=== PATIENT | male | born 1930 | race American Indian/Alaskan Native ===

== ENCOUNTER 2017-10-24 13:53 | Inpatient (IN) | payer MEDICARE ==
[2017-10-24] MEDS ORDERED: NACL 0.9% 1000 ML 1,000 ML ONE ×2 (14:07→16:36)
[2017-10-24] MEDS ORDERED: NACL 0.9% 1000 ML IV ONE (14:30)
[2017-10-24] MEDS ORDERED: TYLENOL PO PRN (14:30)
--- NOTE | 2017-10-24 14:34 | Emergency Department Report ---
ED General Adult HPI - General Chief complaint: Altered Mental Status Stated complaint: AMS Time Seen by Provider: 10/24/17 14:13 Source: patient, EMS (ems notes not available at time of chart dictation), RN notes reviewed Mode of arrival: Stretcher Limitations: Other (patient is demented and is a poor historian) - History of Present Illness Initial comments: This is an 86-year-old male. The patient is previously unknown to this provider. Has a past medical history of renal insufficiency, high cholesterol, dementia, hypertension, possible GERD. He presents to the hospital with EMS from local halfway for fever and possible altered mental status. The patient has no recollection of this at all. The patient has no complaints. The patient specifically denies headache, neck pain, chest pain, abdominal pain , shortness of breath. As per verbal report from the nurse, patient is typically alert and oriented x3. In the ER, the patient was febrile, had a heart rate greater than 90, therefore ruled in for systemic inflammatory response syndrome criteria. -: unknown Consistency: constant Improves with: none Worsens with: none Associated Symptoms: confusion, fever/chills - Related Data Home Medications Medication Instructions Recorded Confirmed Last Taken Atorvastatin Calcium [Lipitor] 20 mg PO DAILY 02/19/14 02/24/14 02/24/14 09:00 Clopidogrel Bisulfate [Plavix] 75 mg PO DAILY 02/19/14 02/24/14 02/24/14 09:00 Donepezil [Aricept] 10 mg PO DAILY 02/19/14 02/24/14 02/24/14 Escitalopram Oxalate [Lexapro] 5 mg PO DAILY 02/19/14 02/24/14 02/24/14 09:00 Glimepiride [Amaryl] 4 mg PO DAILY 02/19/14 02/24/14 02/24/14 09:00 Omeprazole [PriLOSEC] 40 mg PO DAILY 02/19/14 02/24/14 02/24/14 07:00 Valsartan [Diovan] 160 mg PO DAILY 02/19/14 02/24/14 02/24/14 09:00 Meloxicam [Mobic] 7.5 mg PO QDAY 02/24/14 02/24/14 02/24/14 09:00 Previous Rx's Medication Instructions Recorded Last Taken Type Hydrochlorothiazide 12.5 mg PO QAM #30 capsule 02/24/14 Unknown Rx amLODIPine [Norvasc] 5 mg PO DAILY #30 tab 02/24/14 Unknown Rx Allergies Allergy/AdvReac Type Severity Reaction Status Date / Time No Known Allergies Allergy Verified 02/19/14 18:51 ED Review of Systems ROS: Stated complaint: AMS Other details as noted in HPI Comment: Unobtainable due to pts medical conditions Constitutional: fever Eyes: denies: vision change ENT: denies: epistaxis Respiratory: denies: cough Cardiovascular: denies: chest pain Gastrointestinal: denies: abdominal pain Genitourinary: denies: dysuria Neurological: confusion ED Past Medical Hx - Past Medical History Hx Hypertension: Yes Hx Diabetes: Yes - Surgical History Hx Open Heart Surgery: Yes - Social History Smoking Status: Never Smoker Substance Use Type: None - Medications Home Medications: Home Medications Medication Instructions Recorded Confirmed Last Taken Type Atorvastatin Calcium [Lipitor] 20 mg PO DAILY 02/19/14 02/24/14 02/24/14 09:00 History Clopidogrel Bisulfate [Plavix] 75 mg PO DAILY 02/19/14 02/24/14 02/24/14 09:00 History Donepezil [Aricept] 10 mg PO DAILY 02/19/14 02/24/14 02/24/14 History Escitalopram Oxalate [Lexapro] 5 mg PO DAILY 02/19/14 02/24/14 02/24/14 09:00 History Glimepiride [Amaryl] 4 mg PO DAILY 02/19/14 02/24/14 02/24/14 09:00 History Omeprazole [PriLOSEC] 40 mg PO DAILY 02/19/14 02/24/14 02/24/14 07:00 History Valsartan [Diovan] 160 mg PO DAILY 02/19/14 02/24/14 02/24/14 09:00 History Hydrochlorothiazide 12.5 mg PO QAM #30 capsule 02/24/14 Unknown Rx Meloxicam [Mobic] 7.5 mg PO QDAY 02/24/14 02/24/14 02/24/14 09:00 History amLODIPine [Norvasc] 5 mg PO DAILY #30 tab 02/24/14 Unknown Rx ED Physical Exam - General Limitations: Other (patient is demented. Patient is a poor historian.) General appearance: alert, in no apparent distress, other (patient is alert to name and location.) - Head Head exam: Present: atraumatic, normocephalic - Eye Eye exam: Present: normal appearance, EOMI, other (visual acuity intact to finger counting, color perception, reading at a close distance) - ENT ENT exam: Present: mucous membranes dry - Neck Neck exam: Present: normal inspection, full ROM. Absent: tenderness, meningismus - Respiratory Respiratory exam: Present: normal lung sounds bilaterally. Absent: respiratory distress - Cardiovascular Cardiovascular Exam: Present: normal rhythm, tachycardia, normal heart sounds. Absent: systolic murmur, diastolic murmur, rubs, gallop - GI/Abdominal GI/Abdominal exam: Present: soft, normal bowel sounds. Absent: distended, tenderness, guarding, rebound, rigid, pulsatile mass - Rectal Rectal exam: Present: deferred - Extremities Exam Extremities exam: Present: normal inspection, pedal edema, other (there is no redness, pus or streaking. There is no palpable cord The compartments are soft. ). Absent: calf tenderness - Back Exam Back exam: Present: normal inspection, full ROM. Absent: tenderness, CVA tenderness (R), paraspinal tenderness, vertebral tenderness - Neurological Exam Neurological exam: Present: alert, CN II-XII intact, other (Extraocular movements intact. Tongue midline. No facial droop. Facial sensation intact to light touch in the V1, V2, V3 distribution bilaterally. 5 and 5 strength in 4 extremities.. Sensation is intact to light touch in 4 extremities.). Absent : motor sensory deficit - Psychiatric Psychiatric exam: Present: normal affect, normal mood - Skin Skin exam: Present: warm, dry, intact, normal color. Absent: rash ED Course Vital Signs 10/24/17 13:56 Temperature 101.9 F H Pulse Rate 96 H Respiratory 22 Rate Blood Pressure 131/66 O2 Sat by Pulse 95 Oximetry - Reevaluation(s) Reevaluation #1: 10/24/17 15:09 Differential diagnosis, including but not limited to: Pneumonia, bacteremia, urinary tract infection, intra-abdominal infection delirium Assessment and plan: 78-year-old male with acute febrile illness. He has no neck pain or neck stiffness and he is not encephalopathic. He follows commands and has a nonfocal neurologic examination. His examination and history are not consistent with meningitis. Patient will be treated according to the sepsis pathway. He will be loaded empirically with ceftriaxone. Urinalysis, urine cultures, blood cultures, lactic acid pending. Patient will require admission given that he meet sepsis criteria. , Reevaluation #2: 10/24/17 15:27 CAT scan of the brain shows no bleed. CAT scan of the abdomen pelvis with no acute significant. The Hospital physician, Dr. Falcon accept the patient in the service. ED Medical Decision Making - Lab Data Result diagrams: 10/24/17 14:05 10/24/17 14:05 Vital Signs 10/24/17 13:56 Temperature 101.9 F H Pulse Rate 96 H Respiratory 22 Rate Blood Pressure 131/66 O2 Sat by Pulse 95 Oximetry Lab Results 10/24/17 10/24/17 10/24/17 Range/Units 14:05 14:05 14:05 WBC 16.2 H (4.5-11.0) K/mm3 RBC 4.47 (3.65-5.03) M/mm3 Hgb 13.1 (11.8-15.2) gm/dl Hct 38.9 (35.5-45.6) % MCV 87 (84-94) fl MCH 29 (28-32) pg MCHC 34 (32-34) % RDW 14.1 (13.2-15.2) % Plt Count 155 (140-440) K/mm3 Lymph % (Auto) 4.0 L (13.4-35.0) % Delta % (Auto) 8.3 H (0.0-7.3) % Eos % (Auto) 0.0 (0.0-4.3) % Baso % (Auto) 0.4 (0.0-1.8) % Lymph # 0.6 L (1.2-5.4) K/mm3 Delta # 1.3 H (0.0-0.8) K/mm3 Eos # 0.0 (0.0-0.4) K/mm3 Baso # 0.1 (0.0-0.1) K/mm3 Seg Neutrophils % 87.3 H (40.0-70.0) % Seg Neutrophils # 14.2 H (1.8-7.7) K/mm3 PT 13.6 (12.2-14.9) Sec. INR 0.99 (0.87-1.13) Sodium 136 L (137-145) mmol/L Potassium 4.0 (3.6-5.0) mmol/L Chloride 99.6 (98-107) mmol/L Carbon Dioxide 23 (22-30) mmol/L Anion Gap 17 mmol/L BUN 17 (9-20) mg/dL Creatinine 1.7 H (0.8-1.5) mg/dL Estimated GFR 46 ml/min BUN/Creatinine Ratio 10 % Glucose 181 H (75-100) mg/dL Calcium 8.6 (8.4-10.2) mg/dL Total Bilirubin 0.50 (0.1-1.2) mg/dL AST 13 (5-40) units/L ALT 8 (7-56) units/L Alkaline Phosphatase 95 (35-129) units/L Total Protein 7.2 (6.3-8.2) g/dL Albumin 3.6 L (3.9-5) g/dL Albumin/Globulin Ratio 1.0 % Urine Color (Yellow) Urine Turbidity (Clear) Urine pH (5.0-7.0) Ur Specific [place] (1.003-1.030) Urine Protein (Negative) mg/dL Urine Glucose (UA) (Negative) mg/dL Urine Ketones (Negative) mg/dL Urine Blood (Negative) Urine Nitrite (Negative) Urine Bilirubin (Negative) Urine Urobilinogen (<2.0) mg/dL Ur Leukocyte Esterase (Negative) Urine WBC (Auto) (0.0-6.0) /HPF Urine RBC (Auto) (0.0-6.0) /HPF U Epithel Cells (Auto) (0-13.0) /HPF Urine Bacteria (Auto) (Negative) /HPF Urine WBC Clumps /HPF /01/04 Range/Units 14:40 WBC (4.5-11.0) K/mm3 RBC (3.65-5.03) M/mm3 Hgb (11.8-15.2) gm/dl Hct (35.5-45.6) % MCV (84-94) fl MCH (28-32) pg MCHC (32-34) % RDW (13.2-15.2) % Plt Count (140-440) K/mm3 Lymph % (Auto) (13.4-35.0) % Delta % (Auto) (0.0-7.3) % Eos % (Auto) (0.0-4.3) % Baso % (Auto) (0.0-1.8) % Lymph # (1.2-5.4) K/mm3 Delta # (0.0-0.8) K/mm3 Eos # (0.0-0.4) K/mm3 Baso # (0.0-0.1) K/mm3 Seg Neutrophils % (40.0-70.0) % Seg Neutrophils # (1.8-7.7) K/mm3 PT (12.2-14.9) Sec. INR (0.87-1.13) Sodium (137-145) mmol/L Potassium (3.6-5.0) mmol/L Chloride (98-107) mmol/L Carbon Dioxide (22-30) mmol/L Anion Gap mmol/L BUN (9-20) mg/dL Creatinine (0.8-1.5) mg/dL Estimated GFR ml/min BUN/Creatinine Ratio % Glucose (75-100) mg/dL Calcium (8.4-10.2) mg/dL Total Bilirubin (0.1-1.2) mg/dL AST (5-40) units/L ALT (7-56) units/L Alkaline Phosphatase (35-129) units/L Total Protein (6.3-8.2) g/dL Albumin (3.9-5) g/dL Albumin/Globulin Ratio % Urine Color Yellow (Yellow) Urine Turbidity Clear (Clear) Urine pH 5.0 (5.0-7.0) Ur Specific [place] 1.010 (1.003-1.030) Urine Protein <15 mg/dl (Negative) mg/dL Urine Glucose (UA) Neg (Negative) mg/dL Urine Ketones Neg (Negative) mg/dL Urine Blood Mod (Negative) Urine Nitrite Neg (Negative) Urine Bilirubin Neg (Negative) Urine Urobilinogen < 2.0 (<2.0) mg/dL Ur Leukocyte Esterase Lg (Negative) Urine WBC (Auto) > 182.0 H (0.0-6.0) /HPF Urine RBC (Auto) 8.0 (0.0-6.0) /HPF U Epithel Cells (Auto) < 1.0 (0-13.0) /HPF Urine Bacteria (Auto) 1+ (Negative) /HPF Urine WBC Clumps 2+ /HPF - EKG Data -: EKG Interpreted by Me EKG shows normal: sinus rhythm - EKG Data When compared to previous EKG there are: previous EKG unavailable 10/24/17 15:06 Normal sinus, 93 bpm, left axis deviation motion artifact, left ventricular hypertrophy, not having chest - Radiology Data Radiology results: report reviewed, image reviewed Print Report Referring Physician: GONZALO FLETCHER Patient Name: MEGAN MURPHY Date of : 1930 Sex: Male Report Date: 2017-10-24 Report Status: Finalized Findings [facility] [address] [place] [address] XRay Report Signed Patient: MEGAN MURPHY MR#: [id number] : 1930 Acct:[id number] Age/Sex: 86 / M ADM Date: 10/24/17 Loc: ED Attending Dr: Ordering Physician: GONZALO FLETCHER MD Date of Service: 10/24/17 Procedure(s): XR chest 1V ap Accession Number(s): [id number] cc: GONZALO FLETCHER MD Fluoro Time In Minutes: AP CHEST: HISTORY: Sepsis No comparison. Heart size and pulmonary vascularity are borderline. The aorta is ectatic but well-defined. No evidence for pneumonia, CHF or pneumothorax. IMPRESSION: Borderline heart size and pulmonary vascularity. Ectatic aorta. Transcribed By: TTR Dictated By: SHIREEN MIN JR, MD Electronically Authenticated By: SHIREEN MIN JR, MD Signed Date/Time: 10/24/17 1442 Critical care attestation.: If time is entered above; I have spent that time in minutes in the direct care of this critically ill patient, excluding procedure time. ED Disposition Clinical Impression: Sepsis secondary to UTI Disposition: OP ADMIT IP TO THIS HOSP Is pt being admited?: Yes Condition: Good
[2017-10-24 14:37] LABS: Basophils # (Auto) 0.1 K/mm3 (0.0-0.1); Basophils % (Auto) 0.4 % (0.0-1.8); Hematocrit 38.9 % (35.5-45.6); Hemoglobin 13.1 gm/dl (11.8-15.2); Lymphocytes # (Auto) 0.6 K/mm3 (1.2-5.4); Mean Corpuscular HGB Conc 34 % (32-34); Mean Corpuscular Hemoglobin 29 pg (28-32); Mean Corpuscular Volume 87 fl (84-94); Monocytes # (Auto) 1.3 K/mm3 (0.0-0.8); Monocytes % (Auto) 8.3 % (0.0-7.3); Platelet Count 155 K/mm3 (140-440); Red Blood Count 4.47 M/mm3 (3.65-5.03); Red Cell Distribution Width 14.1 % (13.2-15.2)
[2017-10-24 14:52] LABS: INR 0.99 (0.87-1.13)
--- NOTE | 2017-10-24 14:52 | XRay Report ---
AP CHEST: HISTORY: Sepsis No comparison. Heart size and pulmonary vascularity are borderline. The aorta is ectatic but well-defined. No evidence for pneumonia, CHF or pneumothorax. IMPRESSION: Borderline heart size and pulmonary vascularity. Ectatic aorta.
[2017-10-24 14:55] LABS: Bacteria,Urine 1+ /HPF (Negative); Bilirubin,Urine NEG (Negative); Blood,Urine MOD (Negative); Color,Urine Yellow (Yellow); Protein,Urine <15 mg/dL mg/dL (Negative); Urobilinogen,Urine < 2.0 mg/dL (<2.0); WBC,Urine > 182.0 /HPF (0.0-6.0)
[2017-10-24] MEDS ORDERED: ROCEPHIN/NS 1 GM/50 ML 1 GM/50 ML BAG IV SCH (15:00)
[2017-10-24 15:03] LABS: Albumin 3.6 g/dL (3.9-5); Calcium 8.6 mg/dL (8.4-10.2)
--- NOTE | 2017-10-24 15:12 | Cat Scan Report ---
CT HEAD WITHOUT CONTRAST: HISTORY: Altered mental status, sepsis. TECHNIQUE: Sequential CT images without contrast. FINDINGS: Non-contrast CT of the head is submitted demonstrating central and cortical atrophy. There are low density changes in the periventricular white matter. There is no intracranial hemorrhage or mass effect. There is no shift of the midline. Basilar cisterns are patent. The included portions of the paranasal sinuses and mastoid air cells are clear. On the most inferior image, there is suggestion of a periapical tooth abscess involving a right maxillary incisor. IMPRESSION: Senescent changes as noted. No acute intracranial process. Right maxillary incisor periapical tooth abscess.
--- NOTE | 2017-10-24 15:17 | Cat Scan Report ---
CT ABDOMEN PELVIS WITHOUT CONTRAST: HISTORY: Altered mental status, sepsis. COMPARISON: none. TECHNIQUE: Helical CT in 1.25mm intervals without IV contrast. Sagittal and coronal reconstructions. FINDINGS: Lung bases: Adequately aerated. Normal heart size. Liver: Normal. Biliary system: Numerous tiny stones are identified in the dependent portions of the gallbladder. No abnormal dilatation or inflammatory changes. The common bile duct is normal caliber. Pancreas: Normal. Spleen: Normal. Kidneys/ureters/bladder: There is moderate multifocal cortical scarring in both kidneys. No evidence for nephrolithiasis or hydronephrosis. 2 cm cyst near the superior pole the right kidney is noted. The ureters are normal course and caliber. There is moderate to severe bladder diverticulosis. The prostate gland is mildly enlarged measuring 5.6 cm in diameter. Adrenal glands: Normal. Aorta: Moderate diffuse calcifications. There is mild fusiform dilatation of the distal aorta measuring up to 3.8 cm. Intestines: Unremarkable given no oral contrast was administered. Appendix: Normal. Pelvic viscera: Normal. Ascites: None. Adenopathy: None. Musculoskeletal: Osteopenia and diffuse degenerative changes throughout the lumbar spine. No fracture or suspicious bony lesion is identified. IMPRESSION: Cholelithiasis. Chronic multifocal scarring in both kidneys. Diverticulosis of the bladder. Enlarged prostate gland. 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 Osteopenia and degenerative changes.
[2017-10-24] MEDS: cefTRIAXone 1 GM in NACL 0.9% 20 ML IV SCH ×2 (15:24→16:35)
[2017-10-24] MEDS ORDERED: SODIUM CHLORIDE FLUSH SYRINGE 10 ML IV PRN (15:36)
[2017-10-24] MEDS ORDERED: ZOFRAN IV PRN (15:36)
[2017-10-24] MEDS ORDERED: PROVENTIL IH PRN (15:36)
[2017-10-24] MEDS ORDERED: VANCOMYCIN VIAL IV ONE (15:36)
--- NOTE | 2017-10-24 15:36 | History and Physical Report ---
History of Present Illness Chief complaint: confusion and fever History of present illness: 86 YO Male [facility] Resident with HTN, DM, HLD, Dementia,GERD, CAD S/P CABG presents to ED for evaluation. Pt is confused and unable to provide history. Pt history provided by son who is at bedside during exam and interview. As per son , the patient has experienced confusion over the past 2 days, as well as subjective fever. EMS notified, and upon arrival the patient was found to be confused, with fever to 101.3. Pt transported to [facility] for further care and evaluation. Pt seen and evaluated in ED and found to have Sepsis secondary to UTI, as well as encephalopathy, and acute renal failure. Pt admitted to medical floor. No reports of CP, Palpitations, NVD, Syncope, Trauma, skin rash, productive cough, BRBPR, or recent ill contacts. Past History Past Medical History: CAD, diabetes, GERD, hypertension, hyperlipidemia Past Surgical History: CABG Social history: Family history: diabetes, hypertension Medications and Allergies Allergies Allergy/AdvReac Type Severity Reaction Status Date / Time No Known Allergies Allergy Verified 02/19/14 18:51 Home Medications Medication Instructions Recorded Confirmed Last Taken Type Atorvastatin Calcium [Lipitor] 20 mg PO DAILY 02/19/14 02/24/14 02/24/14 09:00 History Clopidogrel Bisulfate [Plavix] 75 mg PO DAILY 02/19/14 02/24/14 02/24/14 09:00 History Donepezil [Aricept] 10 mg PO DAILY 02/19/14 02/24/14 02/24/14 History Escitalopram Oxalate [Lexapro] 5 mg PO DAILY 02/19/14 02/24/14 02/24/14 09:00 History Glimepiride [Amaryl] 4 mg PO DAILY 02/19/14 02/24/14 02/24/14 09:00 History Omeprazole [PriLOSEC] 40 mg PO DAILY 02/19/14 02/24/14 02/24/14 07:00 History Valsartan [Diovan] 160 mg PO DAILY 02/19/14 02/24/14 02/24/14 09:00 History Hydrochlorothiazide 12.5 mg PO QAM #30 capsule 02/24/14 Unknown Rx Meloxicam [Mobic] 7.5 mg PO QDAY 02/24/14 02/24/1402/24/14 09:00 History amLODIPine [Norvasc] 5 mg PO DAILY #30 tab 02/24/14 Unknown Rx Active Meds: Active Medications Acetaminophen (Tylenol) 650 mg PO Q6H PRN PRN Reason: Pain, Mild (1-3) Ceftriaxone Sodium 1 gm/ (Sodium Chloride) 20 mls @ 2 mls/min IV Q24HR JEREL Last Admin: 10/24/17 15:24 Dose: 2 mls/min Review of Systems Constitutional: fever, no weight loss, no weight gain, no chills Ears, nose, mouth and throat: no ear pain, no ear discharge, no tinnitis, no decreased hearing, no nose pain, no nasal congestion Cardiovascular: no chest pain, no orthopnea, no palpitations, no rapid/ irregular heart beat, no edema Respiratory: no cough, no cough with sputum, no excessive sputum, no hemoptysis Gastrointestinal: no abdominal pain, no nausea, no vomiting, no diarrhea, no constipation Genitourinary Male: no dysuria, no hematuria, no flank pain, no discharge, no urinary frequency, no urinary hesitancy Rectal: no pain, no incontinence, no bleeding Musculoskeletal: no neck stiffness, no neck pain, no shooting arm pain, no arm numbness/tingling, no low back pain, no shooting leg pain Integumentary: no rash, no pruritis, no redness, no sores, no wounds, no jaundice, no boils Neurological: no head injury, no transient paralysis, no paralysis, no weakness , no parathesias, no numbness, no tingling, no seizures, no syncope Psychiatric: no anxiety, no memory loss, no change in sleep habits, no sleep disturbances, no insomnia, no hypersomnia, no change in appetite, no change in libido, no suicidal ideation Endocrine: no cold intolerance, no heat intolerance, no polyphagia, no excessive thirst, no polydipsia, no polyuria, no nocturia, no excessive sweating Hematologic/Lymphatic: no easy bruising, no easy bleeding, no lymphadenopathy, no lymphedema Allergic/Immunologic: no urticaria, no allergic rhinitis, no wheezing, no persistent infections, no anaphylaxis Exam - Constitutional Vitals: Temp Pulse Resp BP Pulse Ox 101.9 F H 96 H 22 131/66 95 10/24/17 13:56 10/24/17 13:56 10/24/17 13:56 10/24/17 13:56 10/24/17 13:56 General appearance: Present: mild distress - EENT Eyes: Present: PERRL ENT: hearing intact, clear oral mucosa - Neck Neck: Present: supple, normal ROM - Respiratory Respiratory effort: normal Respiratory: bilateral: CTA - Cardiovascular Heart Sounds: Present: S1 & S2. Absent: rub, click - Extremities Extremities: pulses symmetrical, No edema Peripheral Pulses: abnormal (capillary refill greater than 3.6 seconds) - Abdominal General gastrointestinal: Present: soft, non-tender, non-distended, normal bowel sounds Male genitourinary: Present: normal - Integumentary Integumentary: Present: clear, warm, dry - Musculoskeletal Musculoskeletal: generalized weakness - Psychiatric Psychiatric: no intact judgment & insight, no memory intact - Neurologic Neurologic: CNII-XII intact, moves all extremities, no gait normal Results - Labs CBC & Chem 7: 10/24/17 14:05 10/24/17 14:05 Labs: Abnormal lab results 10/24/17 10/24/17 10/24/17 Range/Units 14:05 14:05 14:40 WBC 16.2 H (4.5-11.0) K/mm3 Lymph % (Auto) 4.0 L (13.4-35.0) % Mathews % (Auto) 8.3 H (0.0-7.3) % Lymph # 0.6 L (1.2-5.4) K/mm3 Mathews # 1.3 H (0.0-0.8) K/mm3 Seg Neutrophils % 87.3 H (40.0-70.0) % Seg Neutrophils # 14.2 H (1.8-7.7) K/mm3 Sodium 136 L (137-145) mmol/L Creatinine 1.7 H (0.8-1.5) mg/dL Glucose 181 H (75-100) mg/dL Lactic Acid (0.7-2.0) mmol/L Albumin 3.6 L (3.9-5) g/dL Urine WBC (Auto) > 182.0 H (0.0-6.0) /HPF 10/24/17 Range/Units Unknown WBC (4.5-11.0) K/mm3 Lymph % (Auto) (13.4-35.0) % Mathews % (Auto) (0.0-7.3) % Lymph # (1.2-5.4) K/mm3 Mathews # (0.0-0.8) K/mm3 Seg Neutrophils % (40.0-70.0) % Seg Neutrophils # (1.8-7.7) K/mm3 Sodium (137-145) mmol/L Creatinine (0.8-1.5) mg/dL Glucose (75-100) mg/dL Lactic Acid 2.60 H* (0.7-2.0) mmol/L Albumin (3.9-5) g/dL Urine WBC (Auto) (0.0-6.0) /HPF Assessment and Plan - Patient Problems (1) Sepsis Status: Acute Qualifiers: Sepsis type: sepsis due to unspecified organism Qualified Code(s): A41.9 - Sepsis, unspecified organism Plan to address problem: IV antibiotic therapy, monitor uop q shift, serial lactic acid, blood cultures, Chest X ray, CBC, CMP, IVF resuscitation. (2) UTI (urinary tract infection) Status: Acute Qualifiers: Encounter type: initial encounter Plan to address problem: IV antibiotic therapy, urinalysis, (3) ARF (acute renal failure) Status: Acute Qualifiers: Acute renal failure type: with acute tubular necrosis Qualified Code(s): N17.0 - Acute kidney failure with tubular necrosis Plan to address problem: IVF resuscitation therapy, urine electrolytes, (4) Acidosis Status: Acute Plan to address problem: IVF resuscitation therapy, monitor uop q shift, repeat bmp, (5) DVT prophylaxis Status: Acute Plan to address problem: SCD to BLE while in bed
[2017-10-24] MEDS ORDERED: VANCOMYCIN PHARMACY TO DOSE IV SCH (16:00)
[2017-10-24] MEDS ORDERED: VANCOMYCIN 1,500 MG in NACL 0.9% 500 ML 500 ML IV ONE (16:15)
[2017-10-24] MEDS ORDERED: ZOSYN/NS 4.5GM/100ML 4.5 GM/100 ML VIAL IV SCH (22:00)
[2017-10-24] MEDS: ZOSYN/NS 2.25 GM/50ML 2.25 GM/50 ML BAG IV SCH ×2 (23:25→23:26)
[2017-10-24] MEDS: TYLENOL PO PRN (23:27)
[2017-10-24] MEDS: SODIUM CHLORIDE FLUSH SYRINGE 10 ML IV SCH (23:46)
[2017-10-25] MEDS: ZOSYN/NS 2.25 GM/50ML 2.25 GM/50 ML BAG IV SCH ×4 (05:59→22:10)
[2017-10-25] MEDS: TYLENOL PO PRN (10:02)
[2017-10-25] MEDS: SODIUM CHLORIDE FLUSH SYRINGE 10 ML IV SCH ×2 (10:20→22:10)
[2017-10-25] MEDS ORDERED: VANCOMYCIN 1,250 MG in NACL 0.9% 250ML 250 ML IV SCH (16:30)
--- NOTE | 2017-10-25 17:21 | Progress Note ---
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 Pt is confused and unable to provide history. Pt history provided by son who is at bedside during exam and interview. As per son , the patient has experienced confusion over the past 2 days, as well as subjective fever. EMS notified, and upon arrival the patient was found to be confused, with fever to 101.3. Pt transported to [facility] for further care and evaluation. Pt seen and evaluated in ED and found to have Sepsis secondary to UTI, as well as encephalopathy, and acute renal failure. Pt admitted to medical floor. No reports of CP, Palpitations, NVD, Syncope, Trauma, skin rash, productive cough, BRBPR, or recent ill contacts. (1) Sepsis Status: Acute Qualifiers: Sepsis type: sepsis due to unspecified organism Qualified Code(s): A41.9 - Sepsis, unspecified organism Plan to address problem: IV antibiotic therapy, monitor uop q shift, serial lactic acid, blood cultures, Chest X ray, CBC, CMP, IVF resuscitation. (2) UTI (urinary tract infection) Status: Acute Qualifiers: Encounter type: initial encounter Plan to address problem: IV antibiotic therapy, urinalysis, (3) ARF (acute renal failure) Status: Acute Qualifiers: Acute renal failure type: with acute tubular necrosis Qualified Code(s): N17.0 - Acute kidney failure with tubular necrosis Plan to address problem: IVF resuscitation therapy, urine electrolytes, (4) Acidosis Status: Acute Plan to address problem: IVF resuscitation therapy, monitor uop q shift, repeat bmp, (5) DVT prophylaxis Status: Acute Plan to address problem: SCD to BLE while in bed Hospitalist Physical - Constitutional Vitals: Temp Pulse Resp BP Pulse Ox 98.7 F 62 20 122/62 97 10/25/17 13:34 10/25/17 13:34 10/25/17 13:34 10/25/17 13:34 10/25/17 13:34 General appearance: Present: mild distress Results - Labs CBC & Chem 7: 10/24/17 14:05 10/24/17 14:05 Labs: Laboratory Last Values WBC 16.2 K/mm3 (4.5-11.0) H 10/24/17 14:05 RBC 4.47 M/mm3 (3.65-5.03) 10/24/17 14:05 Hgb 13.1 gm/dl (11.8-15.2) 10/24/17 14:05 Hct 38.9 % (35.5-45.6) 10/24/17 14:05 MCV 87 fl (84-94) 10/24/17 14:05 MCH 29 pg (28-32) 10/24/17 14:05 MCHC 34 % (32-34) 10/24/17 14:05 RDW 14.1 % (13.2-15.2) 10/24/17 14:05 Plt Count 155 K/mm3 (140-440) 10/24/17 14:05 Lymph % (Auto) 4.0 % (13.4-35.0) L 10/24/17 14:05 [place] % (Auto) 8.3 % (0.0-7.3) H 10/24/17 14:05 Eos % (Auto) 0.0 % (0.0-4.3) 10/24/17 14:05 Baso % (Auto) 0.4 % (0.0-1.8) 10/24/17 14:05 Lymph # 0.6 K/mm3 (1.2-5.4) L 10/24/17 14:05 [place] # 1.3 K/mm3 (0.0-0.8) H 10/24/17 14:05 Eos # 0.0 K/mm3 (0.0-0.4) 10/24/17 14:05 Baso # 0.1 K/mm3 (0.0-0.1) 10/24/17 14:05 Seg Neutrophils % 87.3 % (40.0-70.0) H 10/24/17 14:05 Seg Neutrophils # 14.2 K/mm3 (1.8-7.7) H 10/24/17 14:05 PT 13.6 Sec. (12.2-14.9) 10/24/17 14:05 INR 0.99 (0.87-1.13) 10/24/17 14:05 VBG pH 7.392 (7.320-7.420) 10/24/17 15:00 Sodium 136 mmol/L (137-145) L 10/24/17 14:05 Potassium 4.0 mmol/L (3.6-5.0) 10/24/17 14:05 Chloride 99.6 mmol/L (98-107) 10/24/17 14:05 Carbon Dioxide 23 mmol/L (22-30) 10/24/17 14:05 Anion Gap 17 mmol/L 10/24/17 14:05 BUN 17 mg/dL (9-20) 10/24/17 14:05 Creatinine 1.7 mg/dL (0.8-1.5) H 10/24/17 14:05 Estimated GFR 46 ml/min 10/24/17 14:05 BUN/Creatinine Ratio 10 % 10/24/17 14:05 Glucose 181 mg/dL (75-100) H 10/24/17 14:05 POC Glucose 186 (70-105) H 10/25/17 16:41 Lactic Acid 1.90 mmol/L (0.7-2.0) 10/25/17 04:34 Calcium 8.6 mg/dL (8.4-10.2) 10/24/17 14:05 Total Bilirubin 0.50 mg/dL (0.1-1.2) 10/24/17 14:05 AST 13 units/L (5-40) 10/24/17 14:05 ALT 8 units/L (7-56) 10/24/17 14:05 Alkaline Phosphatase 95 units/L (35-129) 10/24/17 14:05 Total Protein 7.2 g/dL (6.3-8.2) 10/24/17 14:05 Albumin 3.6 g/dL (3.9-5) L 10/24/17 14:05 Albumin/Globulin Ratio 1.0 % 10/24/17 14:05 Urine Color Yellow (Yellow) 10/24/17 14:40 Urine Turbidity Clear (Clear) 10/24/17 14:40 Urine pH 5.0 (5.0-7.0) 10/24/17 14:40 Ur Specific [place] 1.010 (1.003-1.030) 10/24/17 14:40 Urine Protein <15 mg/dl mg/dL (Negative) 10/24/17 14:40 Urine Glucose (UA) Neg mg/dL (Negative) 10/24/17 14:40 Urine Ketones Neg mg/dL (Negative) 10/24/17 14:40 Urine Blood Mod (Negative) 10/24/17 14:40 Urine Nitrite Neg (Negative) 10/24/17 14:40 Urine Bilirubin Neg (Negative) 10/24/17 14:40 Urine Urobilinogen < 2.0 mg/dL (<2.0) 10/24/17 14:40 Ur Leukocyte Esterase Lg (Negative) 10/24/17 14:40 Urine WBC (Auto) > 182.0 /HPF (0.0-6.0) H 10/24/17 14:40 Urine RBC (Auto) 8.0 /HPF (0.0-6.0) 10/24/17 14:40 U Epithel Cells (Auto) < 1.0 /HPF (0-13.0) 10/24/17 14:40 Urine Bacteria (Auto) 1+ /HPF (Negative) 10/24/17 14:40 Urine WBC Clumps 2+ /HPF 10/24/17 14:40
[2017-10-26] MEDS: ZOSYN/NS 2.25 GM/50ML 2.25 GM/50 ML BAG IV SCH ×3 (05:02→17:21)
[2017-10-26 09:03] VITALS: BP 146/70
[2017-10-26] MEDS: TYLENOL PO PRN (09:34)
[2017-10-26] MEDS: SODIUM CHLORIDE FLUSH SYRINGE 10 ML IV SCH (09:35)
--- NOTE | 2017-10-26 15:03 | Discharge Summary ---
Providers - Providers Date of Admission: 10/24/17 15:36 Attending physician: ABDIRAHMAN PRIEST MD Primary care physician: MAULIK GONZALEZ Hospitalization Condition: Good Hospital course: 86 YO Male [facility] Resident with HTN, DM, HLD, Dementia,GERD, CAD S/P CABG presents to ED for evaluation. Pt is confused and unable to provide history. Pt history provided by son who is at bedside during exam and interview. As per son , the patient has experienced confusion over the past 2 days, as well as subjective fever. EMS notified, and upon arrival the patient was found to be confused, with fever to 101.3. Pt transported to [facility] for further care and evaluation. Pt seen and evaluated in ED and found to have Sepsis secondary to UTI, as well as encephalopathy, and acute renal failure. Pt admitted to medical floor. No reports of CP, Palpitations, NVD, Syncope, Trauma, skin rash, productive cough, BRBPR, or recent ill contacts. (1) Sepsis Status: Acute Qualifiers: Sepsis type: sepsis due to unspecified organism Qualified Code(s): A41.9 - Sepsis, unspecified organism Plan to address problem: IV antibiotic therapy, monitor uop q shift, serial lactic acid, blood cultures, Chest X ray, CBC, CMP, IVF resuscitation. (2) UTI (urinary tract infection) Status: Acute Qualifiers: Encounter type: initial encounter Plan to address problem: IV antibiotic therapy, urinalysis, (3) ARF (acute renal failure) Status: Acute Qualifiers: Acute renal failure type: with acute tubular necrosis Qualified Code(s): N17.0 - Acute kidney failure with tubular necrosis Plan to address problem: IVF resuscitation therapy, urine electrolytes, (4) Acidosis Status: Acute Plan to address problem: IVF resuscitation therapy, monitor uop q shift, repeat bmp, (5) DVT prophylaxis Status: Acute Plan to address problem: SCD to BLE while in bed Disposition: DC/TX-70 ANOTHER TYPE [facility]TH[facility] Time spent for discharge: 33 minutes Core Measure Documentation - Palliative Care Palliative Care/ Comfort Measures: Not Applicable - Core Measures Any of the following diagnoses?: none Exam - Constitutional Vitals: Temp Pulse Resp BP Pulse Ox 99.5 F 62 18 146/70 97 10/26/17 08:00 10/26/17 10:00 10/26/17 10:00 10/26/17 08:00 10/26/17 10:00 General appearance: Present: no acute distress, well-nourished - EENT Eyes: Present: PERRL ENT: hearing intact, clear oral mucosa - Neck Neck: Present: supple, normal ROM - Respiratory Respiratory effort: normal Respiratory: bilateral: CTA - Cardiovascular Heart Sounds: Present: S1 & S2. Absent: rub, click - Extremities Extremities: pulses symmetrical, No edema Peripheral Pulses: within normal limits - Abdominal General gastrointestinal: Present: soft, non-tender, non-distended, normal bowel sounds Male genitourinary: Present: normal - Integumentary Integumentary: Present: clear, warm, dry - Musculoskeletal Musculoskeletal: gait normal, strength equal bilaterally - Psychiatric Psychiatric: appropriate mood/affect, no intact judgment & insight, no memory intact, cooperative - Neurologic Neurologic: CNII-XII intact, moves all extremities Plan Follow up with: MAULIK GONZALEZ MD [Primary Care Provider] - 7 Days
== END 2017-10-26 19:50 | disposition other institution (70) | DRG 871 ==
LOC: ED 13:53 → 2B-ACE 15:36
PROVIDERS: ADMIT Internal Medicine; ATTEND Internal Medicine
DX: A41.9 Sepsis, unspecified organism (principal); N17.0 Acute kidney failure with tubular necrosis; G93.40 Encephalopathy, unspecified; N39.0 Urinary tract infection, site not specified; E87.2 Acidosis; I10 Essential (primary) hypertension; E11.9 Type 2 diabetes mellitus without complications; E78.5 Hyperlipidemia, unspecified; F03.90 Unspecified dementia, unspecified severity, without behavioral disturbance, psychotic disturbance, mood disturbance, and anxiety; K21.9 Gastro-esophageal reflux disease without esophagitis; I25.10 Atherosclerotic heart disease of native coronary artery without angina pectoris; Z95.1 Presence of aortocoronary bypass graft; Z82.49 Family history of ischemic heart disease and other diseases of the circulatory system; Z83.3 Family history of diabetes mellitus
CPT/HCPCS: 36415; 70450; 71045; 74176; 80053; 81001; 82140; 82805; 82962; 85025; 85610; 87040; 87086; 93005; 93010; 96365; J0696; J2405; J2543; J3370; J7030; J7040; J7050

== ENCOUNTER 2018-01-04 12:48 | Inpatient (IN) | payer MEDICARE ==
[2018-01-04] MEDS ORDERED: NACL 0.9% 500 ML 500 ML IV ONE (13:20)
[2018-01-04 13:43] LABS: Basophils # (Auto) 0.1 K/mm3 (0.0-0.1); Basophils % (Auto) 0.8 % (0.0-1.8); Eosinophils % (Auto) 0.2 % (0.0-4.3); Hemoglobin 11.3 gm/dl (11.8-15.2); Lymphocytes # (Auto) 1.2 K/mm3 (1.2-5.4); Lymphocytes % (Auto) 10.5 % (13.4-35.0); Mean Corpuscular HGB Conc 32 % (32-34); Mean Corpuscular Hemoglobin 28 pg (28-32); Mean Corpuscular Volume 88 fl (84-94); Monocytes # (Auto) 1.1 K/mm3 (0.0-0.8); Monocytes % (Auto) 9.8 % (0.0-7.3); Platelet Count 149 K/mm3 (140-440); Red Blood Count 3.99 M/mm3 (3.65-5.03); Red Cell Distribution Width 15.4 % (13.2-15.2)
[2018-01-04 13:58] LABS: INR 1.15 (0.87-1.13)
[2018-01-04 13:59] LABS: Albumin 2.6 g/dL (3.9-5); Calcium 8.8 mg/dL (8.4-10.2)
--- NOTE | 2018-01-04 14:27 | XRay Report ---
AP CHEST: HISTORY: Possible sepsis Heart size and pulmonary vascularity remain within normal limits. The aorta is ectatic which is also unchanged. The lungs are clear. The bony structures are intact. IMPRESSION: No acute process. Tortuous aorta. No change since 10/24/17.
[2018-01-04 14:41] LABS: Bilirubin,Urine NEG (Negative); Blood,Urine MOD (Negative); Color,Urine Yellow (Yellow); WBC,Urine > 182.0 /HPF (0.0-6.0)
--- NOTE | 2018-01-04 16:13 | Emergency Department Report ---
ED Medical Clearance HPI - General Chief complaint: Medical Clearance Stated complaint: DEHYDRATION Time Seen by Provider: 01/04/18 15:38 Source: EMS Mode of arrival: Stretcher - History of Present Illness Initial comments: 87yo male was brought in from Assisted living to get his vitals checked and to make sure he was doing ok. per pts son, kaleb he is under no acute distress, acting himself, no change in behavior. Reason for Medical Clearance: other trauma, other Place: other (assisted living) Alledged Intoxication: No Compliant with Home Medications: Yes Traumatic Symptoms: denies traumatic injury, trunk injury Associated Symptoms: denies: chest pain, shortness of breath, palpitations, diaphoresis, denies other symptoms, confusion, cough, fever/chills, headaches, anorexia, malaise, nausea/vomiting, rash, seizure, syncope, weakness Treatments Prior to Arrival: none Home medications: Home Medications Medication Instructions Recorded Confirmed Last Taken Atorvastatin Calcium [Lipitor] 20 mg PO DAILY 02/19/14 10/24/17 02/24/14 09:00 Clopidogrel Bisulfate [Plavix] 75 mg PO DAILY 02/19/14 10/24/17 02/24/14 09:00 Donepezil [Aricept] 10 mg PO HS 02/19/14 10/24/17 02/24/14 Escitalopram Oxalate [Lexapro] 5 mg PO DAILY 02/19/14 10/24/17 02/24/14 09:00 Omeprazole [PriLOSEC] 40 mg PO DAILY 02/19/14 10/24/17 02/24/14 07:00 Hydrochlorothiazide 12.5 mg PO QDAY 10/24/17 10/24/17 Unknown risperiDONE [Risperdal] 0.5 mg PO DAILY 10/24/17 10/24/17 Unknown Previous Rx's Medication Instructions Recorded Last Taken Type Cephalexin [Keflex] 500 mg PO BID #10 capsule 10/26/17 Unknown Rx Allergies/Adverse reactions: Allergies Allergy/AdvReac Type Severity Reaction Status Date / Time No Known Allergies Allergy Verified 01/04/18 13:12 ED Review of Systems ROS: Stated complaint: DEHYDRATION Other details as noted in HPI Constitutional: denies: chills, fever Eyes: denies: eye pain, eye discharge, vision change ENT: denies: ear pain, throat pain Respiratory: denies: cough, shortness of breath, wheezing Cardiovascular: denies: chest pain, palpitations Endocrine: no symptoms reported Gastrointestinal: denies: abdominal pain, nausea, diarrhea Genitourinary: denies: urgency, dysuria Musculoskeletal: denies: back pain, joint swelling, arthralgia Skin: denies: rash, lesions Neurological: denies: headache, weakness, paresthesias Psychiatric: denies: anxiety, depression Hematological/Lymphatic: denies: easy bleeding, easy bruising ED Past Medical Hx - Past Medical History Hx Hypertension: Yes Hx Diabetes: Yes Additional medical history: DEMENTIA RENAL FAILURE - Surgical History Hx Open Heart Surgery: Yes - Social History Smoking Status: Unknown if ever smoked - Medications Home Medications: Home Medications Medication Instructions Recorded Confirmed Last Taken Type Atorvastatin Calcium [Lipitor] 20 mg PO DAILY 02/19/14 10/24/17 02/24/14 09:00 History Clopidogrel Bisulfate [Plavix] 75 mg PO DAILY 02/19/14 10/24/17 02/24/14 09:00 History Donepezil [Aricept] 10 mg PO HS 02/19/14 10/24/17 02/24/14 History Escitalopram Oxalate [Lexapro] 5 mg PO DAILY 02/19/14 10/24/17 02/24/14 09:00 History Omeprazole [PriLOSEC] 40 mg PO DAILY 02/19/14 10/24/17 02/24/14 07:00 History Hydrochlorothiazide 12.5 mg PO QDAY 10/24/17 10/24/17 Unknown History risperiDONE [Risperdal] 0.5 mg PO DAILY 10/24/17 10/24/17 Unknown History Cephalexin [Keflex] 500 mg PO BID #10 capsule 10/26/17 Unknown Rx ED Physical Exam - General Limitations: Other General appearance: alert, in no apparent distress - Head Head exam: Present: atraumatic, normocephalic - Eye Eye exam: Present: normal appearance - ENT ENT exam: Present: mucous membranes moist - Neck Neck exam: Present: normal inspection - Respiratory Respiratory exam: Present: normal lung sounds bilaterally. Absent: respiratory distress - Cardiovascular Cardiovascular Exam: Present: regular rate, normal rhythm. Absent: systolic murmur, diastolic murmur, rubs, gallop - GI/Abdominal GI/Abdominal exam: Present: soft, normal bowel sounds - Rectal Rectal exam: Present: deferred - Extremities Exam Extremities exam: Present: normal inspection - Back Exam Back exam: Present: normal inspection - Neurological Exam Neurological exam: Present: alert, oriented X3 - Psychiatric Psychiatric exam: Present: normal affect, normal mood - Skin Skin exam: Present: warm, dry, intact, normal color. Absent: rash ED Course Vital Signs 01/04/18 01/04/18 01/04/18 13:12 13:33 13:35 Temperature 99.1 F Pulse Rate 107 H 104 H Respiratory 16 24 24 Rate Blood Pressure 118/87 Blood Pressure 108/60 [Left] O2 Sat by Pulse 96 97 97 Oximetry 01/04/18 01/04/18 01/04/18 14:10 14:16 15:00 Temperature 100.8 F H Pulse Rate 104 H 74 Respiratory 21 17 Rate Blood Pressure 112/59 88/46 Blood Pressure [Left] O2 Sat by Pulse 100 100 Oximetry 01/04/18 01/04/18 15:30 16:00 Temperature Pulse Rate 75 78 Respiratory 15 14 Rate Blood Pressure 117/52 114/62 Blood Pressure [Left] O2 Sat by Pulse 98 76 L Oximetry 87yo male brought in from assisted living for being dehydrated, pt has a UTI, and pt is given antibiotics in the ER and he will be admitted for observation. ED Medical Decision Making - Lab Data Result diagrams: 01/04/18 13:25 01/04/18 13:25 ED Disposition Clinical Impression: Dehydration, Urinary tract infection Disposition: -09 OP ADMIT IP TO THIS HOSP Is pt being admited?: Yes Does the pt Need Aspirin: No Condition: Stable Referrals: PRIMARY CARE, [Primary Care Provider] - 3-5 Days
[2018-01-04] MEDS ORDERED: ROCEPHIN/NS 2 GM/100 ML 2 GM/100 ML BAG IV ONE (16:49)
[2018-01-04] MEDS ORDERED: ROCEPHIN/NS 1 GM/50 ML 1 GM/50 ML BAG IV SCH (17:30)
[2018-01-04] MEDS ORDERED: D50W (25GM) Syringe IV PRN (22:22)
[2018-01-04] MEDS ORDERED: SODIUM CHLORIDE FLUSH SYRINGE 10 ML IV PRN (22:22)
[2018-01-04] MEDS ORDERED: ZOFRAN IV PRN (22:22)
--- NOTE | 2018-01-05 00:30 | History and Physical Report ---
History of Present Illness Date of examination: 01/05/18 Date of admission: 01/04/18 18:34 Chief complaint: Poor historian Patient apparently was transferred from assisted living facility to check his vital signs as he was felt to be hot History of present illness: 87-year-old male with history of hypertension diabetes hyperlipidemia dementia and depression who lives in assisted living facility was transferred to the ED to check out as he was noted to have some fever. In the ED he was noted to have a temperature of 100.8 and upon further workup was noted to have UTI and is being admitted for further management. Patient is awake and alert, poor historian, offers no specific complaints and he denies any pain. 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) Social history: no significant social history Family history: other (unable to obtain) Medications and Allergies Allergies Allergy/AdvReac Type Severity Reaction Status Date / Time No Known Allergies Allergy Verified 01/04/18 13:12 Home Medications Medication Instructions Recorded Confirmed Last Taken Type Atorvastatin Calcium [Lipitor] 20 mg PO DAILY 02/19/14 01/04/18 02/24/14 09:00 History Clopidogrel Bisulfate [Plavix] 75 mg PO DAILY 02/19/14 01/04/18 02/24/14 09:00 History Donepezil [Aricept] 10 mg PO HS 02/19/14 01/04/18 02/24/14 History Escitalopram Oxalate [Lexapro] 5 mg PO DAILY 02/19/14 01/04/18 02/24/14 09:00 History Omeprazole [PriLOSEC] 40 mg PO DAILY 02/19/14 01/04/18 02/24/14 07:00 History Hydrochlorothiazide 12.5 mg PO QDAY 10/24/17 01/04/18 Unknown History risperiDONE [Risperdal] 0.5 mg PO DAILY 10/24/17 01/04/18 Unknown History Glimepiride [Amaryl] 2 mg PO DAILY 01/04/18 01/04/18 Unknown History Valsartan [Diovan] 160 mg PO DAILY 01/04/18 01/04/18 Unknown History amLODIPine [Norvasc] 10 mg PO DAILY 01/04/18 01/04/18 Unknown History Active Meds: Active Medications Acetaminophen (Tylenol) 650 mg PO Q4H PRN PRN Reason: Pain MILD(1-3)/Fever >100.5/TSANG Dextrose (D50w (25gm) Syringe) 50 ml IV PRN PRN PRN Reason: Hypoglycemia Heparin Sodium (Porcine) (Heparin) 5,000 unit SUB-Q Q8HR JEREL Dextrose/Sodium Chloride (D5ns) 1,000 mls @ 75 mls/hr IV DIRECT JEREL Ceftriaxone Sodium (Rocephin/Ns 1 Gm/50 Ml) 1 gm in 50 mls @ 100 mls/hr IV Q24HR JEREL; Protocol Insulin Human Lispro (Humalog) 0 unit SUB-Q ACHS JEREL; Protocol Ondansetron HCl (Zofran) 4 mg IV Q8H PRN PRN Reason: Nausea And Vomiting Sodium Chloride (Sodium Chloride Flush Syringe 10 Ml) 10 ml IV BID JEREL Sodium Chloride (Sodium Chloride Flush Syringe 10 Ml) 10 ml IV PRN PRN PRN Reason: LINE FLUSH Review of Systems Constitutional: no weight loss, no weight gain, no fever, no chills, no weakness Cardiovascular: high blood pressure, no chest pain, no palpitations, no shortness of breath Respiratory: no cough, no shortness of breath Gastrointestinal: no abdominal pain, no nausea, no vomiting, no diarrhea, no constipation, no melena Genitourinary Male: no dysuria, no urinary frequency, no incontinence Rectal: no pain Musculoskeletal: no neck pain, no low back pain Integumentary: no rash Neurological: no seizures, no syncope, no vertigo, no headaches Psychiatric: no anxiety, no depression Endocrine: no excessive thirst, no polydipsia, no polyuria Exam - Constitutional Vitals: Temp Pulse Resp BP Pulse Ox 99.7 F H 104 H 18 129/69 96 01/04/18 23:00 01/04/18 23:00 01/04/18 23:00 01/04/18 23:00 01/04/18 23:00 General appearance: Present: no acute distress, well-nourished - EENT Eyes: Present: PERRL, EOM intact ENT: hearing intact - Neck Neck: Present: supple, normal ROM. Absent: masses or JVD, carotid bruits - Respiratory Respiratory effort: normal Respiratory: bilateral: CTA, diminished - Cardiovascular Rhythm: regular Heart Sounds: Present: S1 & S2 - Extremities Extremity abnormal: edema (1+ bilateral leg edema) - Abdominal General gastrointestinal: Present: soft, non-tender. Absent: hepatomegaly, splenomegaly Male genitourinary: Present: deferred - Rectal Rectal Exam: deferred - Integumentary Integumentary: Present: clear - Musculoskeletal Musculoskeletal: strength equal bilaterally - Psychiatric Psychiatric: appropriate mood/affect - Neurologic Neurologic: no focal deficits, moves all extremities Results - Labs CBC & Chem 7: 01/04/18 13:25 01/04/18 13:25 Labs: Abnormal lab results 01/04/18 01/04/18 01/04/18 Range/Units 13:25 13:25 13:25 WBC 11.5 H (4.5-11.0) K/mm3 Hgb 11.3 L (11.8-15.2) gm/dl Hct 35.0 L (35.5-45.6) % RDW 15.4 H (13.2-15.2) % Lymph % (Auto) 10.5 L (13.4-35.0) % [place] % (Auto) 9.8 H (0.0-7.3) % [place] # 1.1 H (0.0-0.8) K/mm3 Seg Neutrophils % 78.7 H (40.0-70.0) % Seg Neutrophils # 9.0 H (1.8-7.7) K/mm3 PT 15.3 H (12.2-14.9) Sec. INR 1.15 H (0.87-1.13) Potassium 3.4 L (3.6-5.0) mmol/L BUN 26 H (9-20) mg/dL Creatinine 1.8 H (0.8-1.5) mg/dL Glucose 202 H (75-100) mg/dL Albumin 2.6 L (3.9-5) g/dL Urine WBC (Auto) (0.0-6.0) /HPF 01/04/18 Range/Units 14:18 WBC (4.5-11.0) K/mm3 Hgb (11.8-15.2) gm/dl Hct (35.5-45.6) % RDW (13.2-15.2) % Lymph % (Auto) (13.4-35.0) % [place] % (Auto) (0.0-7.3) % [place] # (0.0-0.8) K/mm3 Seg Neutrophils % (40.0-70.0) % Seg Neutrophils # (1.8-7.7) K/mm3 PT (12.2-14.9) Sec. INR (0.87-1.13) Potassium (3.6-5.0) mmol/L BUN (9-20) mg/dL Creatinine (0.8-1.5) mg/dL Glucose (75-100) mg/dL Albumin (3.9-5) g/dL Urine WBC (Auto) > 182.0 H (0.0-6.0) /HPF Assessment and Plan - Patient Problems (1) Type 2 diabetes mellitus Current Visit: Yes Status: Chronic Qualifiers: Diabetes mellitus penitentiary insulin use: without terminal makeup operator use Diabetes mellitus complication status: with kidney complications Chronic kidney disease stage: unspecified stage Plan to address problem: Start the patient on Accu-Cheks with insulin sliding scale coverage (2) Hypertension Current Visit: Yes Status: Chronic Plan to address problem: Continue home medications (3) Hyperlipidemia Current Visit: Yes Status: Chronic Qualifiers: Hyperlipidemia type: mixed hyperlipidemia Qualified Code(s): E78.2 - Mixed hyperlipidemia Plan to address problem: Continue statin (4) Dementia Current Visit: Yes Status: Chronic Qualifiers: Dementia type: Alzheimer's disease Alzheimer's disease onset: late-onset Dementia behavioral disturbance: without behavioral disturbance Qualified Code (s): G30.1 - Alzheimer's disease with late onset; F02.80 - Dementia in other diseases classified elsewhere without behavioral disturbance Plan to address problem: Continue home medication (5) Depression Current Visit: Yes Status: Chronic Qualifiers: Depression Type: unspecified Qualified Code(s): F32.9 - Major depressive disorder, single episode, unspecified Plan to address problem: Continue home medication (6) Hypokalemia Current Visit: Yes Status: Acute Plan to address problem: Mild Potassium supplements Monitor electrolytes (7) UTI (urinary tract infection) Current Visit: Yes Status: Acute Qualifiers: Urinary tract infection type: acute cystitis Hematuria presence: with hematuria Qualified Code(s): N30.01 - Acute cystitis with hematuria Plan to address problem: Urine and blood cultures obtained Start the patient on intravenous antibiotics with empiric ceftriaxone Await blood and urine culture results (8) ARF (acute renal failure) Current Visit: No Status: Acute Qualifiers: Acute renal failure type: with acute tubular necrosis Qualified Code(s): N17.0 - Acute kidney failure with tubular necrosis Plan to address problem: Patient's baseline renal function is not known Rule out acute on chronic kidney disease Gentle IV hydration and monitor renal function Avoid nephrotoxins Will request nephrology consult
[2018-01-05] MEDS: D5NS 1,000 ML IV SCH ×2 (04:28→17:25)
[2018-01-05] MEDS: HEPARIN SUB-Q SCH ×3 (06:26→22:03)
[2018-01-05 06:37] LABS: Calcium 8.4 mg/dL (8.4-10.2)
--- NOTE | 2018-01-05 07:35 | Consultation ---
History of Present Illness - Reason for Consult Consult date: 01/05/18 chronic renal failure, hypokalemia - History of Present Illness The patient is an 87-year AAM with history significant for DM type 2, HTN, HLD, Dementia, Depression and CKD who lives in assisted living facility was transferred to the ED for evaluation of fever. In the ED he was noted to have a temperature of 100.8 and upon further workup was noted to have UTI. Patient is a very poor historian. Initial BP was as low as 88/48 and creatinine was 1.8. 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) Social history: no significant social history Family history: other (unable to obtain) Medications and Allergies Allergies Allergy/AdvReac Type Severity Reaction Status Date / Time No Known Allergies Allergy Verified 01/04/18 13:12 Home Medications Medication Instructions Recorded Confirmed Last Taken Type Atorvastatin Calcium [Lipitor] 20 mg PO DAILY 02/19/14 01/04/18 02/24/14 09:00 History Clopidogrel Bisulfate [Plavix] 75 mg PO DAILY 02/19/14 01/04/18 02/24/14 09:00 History Donepezil [Aricept] 10 mg PO HS 02/19/14 01/04/18 02/24/14 History Escitalopram Oxalate [Lexapro] 5 mg PO DAILY 02/19/14 01/04/18 02/24/14 09:00 History Omeprazole [PriLOSEC] 40 mg PO DAILY 02/19/14 01/04/18 02/24/14 07:00 History Hydrochlorothiazide 12.5 mg PO QDAY 10/24/17 01/04/18 Unknown History risperiDONE [Risperdal] 0.5 mg PO DAILY 10/24/17 01/04/18 Unknown History Glimepiride [Amaryl] 2 mg PO DAILY 01/04/18 01/04/18 Unknown History Valsartan [Diovan] 160 mg PO DAILY 01/04/18 01/04/18 Unknown History amLODIPine [Norvasc] 10 mg PO DAILY 01/04/18 01/04/18 Unknown History Active Meds: Active Medications Acetaminophen (Tylenol) 650 mg PO Q4H PRN PRN Reason: Pain MILD(1-3)/Fever >100.5/TSANG Dextrose (D50w (25gm) Syringe) 50 ml IV PRN PRN PRN Reason: Hypoglycemia Heparin Sodium (Porcine) (Heparin) 5,000 unit SUB-Q Q8HR JEREL Last Admin: 01/05/18 06:26 Dose: 5,000 unit Dextrose/Sodium Chloride (D5ns) 1,000 mls @ 75 mls/hr IV DIRECT JEREL Last Admin: 01/05/18 04:28 Dose: 75 mls/hr Ceftriaxone Sodium (Rocephin/Ns 1 Gm/50 Ml) 1 gm in 50 mls @ 100 mls/hr IV Q24HR JEREL; Protocol Insulin Human Lispro (Humalog) 0 unit SUB-Q ACHS JEREL; Protocol Ondansetron HCl (Zofran) 4 mg IV Q8H PRN PRN Reason: Nausea And Vomiting Sodium Chloride (Sodium Chloride Flush Syringe 10 Ml) 10 ml IV BID JEREL Sodium Chloride (Sodium Chloride Flush Syringe 10 Ml) 10 ml IV PRN PRN PRN Reason: LINE FLUSH Review of Systems ROS unobtainable: due to mental status Exam - Vital Signs Vital signs: Vital Signs Temp Pulse Resp BP Pulse Ox 99.1 F 107 H 16 118/87 96 01/04/18 13:12 01/04/18 13:12 01/04/18 13:12 01/04/18 13:12 01/04/18 13:12 - General Appearance General appearance: well-developed, appears stated age, other (no distress) EENT: ATNC, mucous membranes dry Neck: Present: neck supple Respiratory: Clear to Ascultation Heart: regular, S1S2, no murmurs Gastrointestinal: Present: normoactive bowel sounds. Absent: tenderness Integumentary: chronic venous stasis Neurologic: no focal deficit, confused, disoriented Musculoskeletal: Present: other (amputation of right 4 fingers, trace bilateral LE edema noted) Psychiatric: cooperative Results - Lab Results 01/04/18 13:25 01/05/18 05:35 Most recent lab results Calcium 8.4 mg/dL (8.4-10.2) 01/05/18 05:35 Assessment and Plan 1. Acute kidney injury: Vasomotor / hemodynamic YESENIA. Continue IV fluids. Monitor renal function. 2. Hypokalemia: Replete K. 3. UTI / Sepsis. 4. Dementia.
[2018-01-05] MEDS: HumaLOG SUB-Q SCH ×4 (08:15→23:34)
[2018-01-05] MEDS: NORVASC PO SCH (09:00)
--- NOTE | 2018-01-05 09:23 | Progress Note ---
Assessment and Plan - Sepsis from UTI Follow up with blood and urine Cx Continue with iv antibiotic - Type 2 diabetes mellitus Consistent carbohydrate diet. Obtain A1c. Start the patient on Accu-Cheks with insulin sliding scale coverage - Hypertension Continue home medications - Hyperlipidemia Continue statin - Dementia Continue home medication - Depression Continue home medication - Hypokalemia Mild Potassium supplements Monitor electrolytes - UTI (urinary tract infection) Urine and blood cultures obtained continue intravenous antibiotics with empiric ceftriaxone Await blood and urine culture results - ARF (acute renal failure) Patient's baseline renal function is not known Rule out acute on chronic kidney disease Gentle IV hydration and monitor renal function Avoid nephrotoxins Nephrology consult following Subjective Date of service: 01/05/18 Principal diagnosis: Sepsis from UTI Interval history: Patient seen and examined. No distress. Discussed with nursing staff. No overnight events reported Reviewed laboratory and radiological data Objective - Exam Narrative Exam: Constitutional: Emaciated Well-nourished well-developed. In no distress Head: Normocephalic atraumatic Eyes: Pupils are equal round and reactive to light Nose: No enlarged turbinates, no septal deviation. Mouth: Moist mucous membranes. Neck: Supple no thyromegaly. No bruit. No JVD Heart: Regular rate and rhythm, S1-S2 abnormal. No rubs murmurs or gallop Lungs: Clear to auscultation bilaterally no rales or rhonchi Abdomen: Soft, nontender. Bowel sound are present. Extremities: No edema no cyanosis and no clubbing. Neuro: Demented Skin: No rashes no hyperemic spots Psychiatry: Demented - Constitutional Vitals: Vital Signs - 12hr 01/04/18 01/04/18 01/04/18 21:30 22:00 22:56 Temperature Pulse Rate 92 H 77 Pulse Rate [ Left Radial] Respiratory 20 21 Rate Blood Pressure 119/60 119/60 132/66 Blood Pressure [Left] O2 Sat by Pulse 88 Oximetry 01/04/18 01/04/18 01/04/18 23:00 23:05 23:19 Temperature 99.7 F H Pulse Rate 104 H Pulse Rate [ Left Radial] Respiratory 18 Rate Blood Pressure 132/66 132/66 Blood Pressure 129/69 [Left] O2 Sat by Pulse 96 Oximetry 01/04/18 01/05/18 01/05/18 23:20 01:00 01:19 Temperature Pulse Rate Pulse Rate [ 90 Left Radial] Respiratory Rate Blood Pressure 132/66 132/66 Blood Pressure [Left] O2 Sat by Pulse 97 Oximetry 01/05/18 01/05/18 01/05/18 01:38 01:50 02:01 Temperature 99.7 F H Pulse Rate 78 Pulse Rate [ Left Radial] Respiratory 18 Rate Blood Pressure 132/66 132/66 139/66 Blood Pressure [Left] O2 Sat by Pulse 95 Oximetry 01/05/18 01/05/18 04:25 08:36 Temperature Pulse Rate 84 Pulse Rate [ Left Radial] Respiratory Rate Blood Pressure Blood Pressure [Left] O2 Sat by Pulse 97 Oximetry - Labs CBC & Chem 7: 01/04/18 13:25 01/05/18 05:35 Labs: Abnormal lab results 01/04/18 01/04/18 01/04/18 Range/Units 13:25 13:25 13:25 WBC 11.5 H (4.5-11.0) K/mm3 Hgb 11.3 L (11.8-15.2) gm/dl Hct 35.0 L (35.5-45.6) % RDW 15.4 H (13.2-15.2) % Lymph % (Auto) 10.5 L (13.4-35.0) % [place] % (Auto) 9.8 H (0.0-7.3) % [place] # 1.1 H (0.0-0.8) K/mm3 Seg Neutrophils % 78.7 H (40.0-70.0) % Seg Neutrophils # 9.0 H (1.8-7.7) K/mm3 PT 15.3 H (12.2-14.9) Sec. INR 1.15 H (0.87-1.13) Potassium 3.4 L (3.6-5.0) mmol/L Carbon Dioxide (22-30) mmol/L BUN 26 H (9-20) mg/dL Creatinine 1.8 H (0.8-1.5) mg/dL Glucose 202 H (75-100) mg/dL POC Glucose (70-105) Albumin 2.6 L (3.9-5) g/dL Urine WBC (Auto) (0.0-6.0) /HPF 01/04/18 01/05/18 01/05/18 Range/Units 14:18 01:32 05:35 WBC (4.5-11.0) K/mm3 Hgb (11.8-15.2) gm/dl Hct (35.5-45.6) % RDW (13.2-15.2) % Lymph % (Auto) (13.4-35.0) % [place] % (Auto) (0.0-7.3) % [place] # (0.0-0.8) K/mm3 Seg Neutrophils % (40.0-70.0) % Seg Neutrophils # (1.8-7.7) K/mm3 PT (12.2-14.9) Sec. INR (0.87-1.13) Potassium 3.5 L (3.6-5.0) mmol/L Carbon Dioxide 21 L (22-30) mmol/L BUN 21 H (9-20) mg/dL Creatinine 1.6 H (0.8-1.5) mg/dL Glucose 135 H (75-100) mg/dL POC Glucose 124 H (70-105) Albumin (3.9-5) g/dL Urine WBC (Auto) > 182.0 H (0.0-6.0) /HPF 01/05/18 Range/Units 08:08 WBC (4.5-11.0) K/mm3 Hgb (11.8-15.2) gm/dl Hct (35.5-45.6) % RDW (13.2-15.2) % Lymph % (Auto) (13.4-35.0) % [place] % (Auto) (0.0-7.3) % [place] # (0.0-0.8) K/mm3 Seg Neutrophils % (40.0-70.0) % Seg Neutrophils # (1.8-7.7) K/mm3 PT (12.2-14.9) Sec. INR (0.87-1.13) Potassium (3.6-5.0) mmol/L Carbon Dioxide (22-30) mmol/L BUN (9-20) mg/dL Creatinine (0.8-1.5) mg/dL Glucose (75-100) mg/dL POC Glucose 176 H (70-105) Albumin (3.9-5) g/dL Urine WBC (Auto) (0.0-6.0) /HPF
[2018-01-05] MEDS ORDERED: NON-FORMULARY (Omeprazole [Prilosec] 40 MG) PO SCH (10:00)
[2018-01-05] MEDS ORDERED: ESCITALOPRAM OXALATE 5 MG PO SCH (10:00)
[2018-01-05] MEDS ORDERED: NON-FORMULARY (Risperidone [Risperdal] 0.5 MG) PO SCH (10:00)
[2018-01-05] MEDS: ROCEPHIN/NS 1 GM/50 ML 1 GM/50 ML BAG IV SCH (10:30)
[2018-01-05] MEDS: SODIUM CHLORIDE FLUSH SYRINGE 10 ML IV SCH (10:31)
[2018-01-05] MEDS: TYLENOL PO PRN (11:46)
[2018-01-05] MEDS: PLAVIX PO SCH (11:47)
[2018-01-05] MEDS: PROTONIX PO SCH (14:57)
[2018-01-05] MEDS: LEXAPRO PO SCH (14:57)
[2018-01-05] MEDS: RisperDAL PO SCH (14:58)
[2018-01-05] MEDS ORDERED: K-DUR PO ONE (19:25)
[2018-01-05] MEDS: ARICEPT PO SCH (22:00)
--- NOTE | 2018-01-05 23:42 | Ultrasound Report ---
FINAL REPORT PROCEDURE: US RENAL BILAT TECHNIQUE: Real-time sonography in multiple planes of the kidneys, ureters and urinary bladder was performed with image documentation. CPT 29946 HISTORY: Acute renal failure. COMPARISON: No prior studies are available for comparison. FINDINGS: RIGHT kidney: Parenchymal echotexture is normal without calculi or hydronephrosis. A simple cyst measuring 1.5 centimeters is noted in the upper pole.. Length: 10.3 x 3.9 x 4.3 cm. LEFT kidney: Normal echotexture. No focal renal mass, calculus, or hydronephrosis. Length: 10 x 4.4 x 4.6cm. Bladder: Empty. Incidental note is made of multiple small calculi in the gallbladder IMPRESSION: A simple cyst is noted in the upper pole right kidney. Otherwise unremarkable study. Evidence of cholelithiasis..
[2018-01-06] MEDS: SODIUM CHLORIDE FLUSH SYRINGE 10 ML IV SCH ×3 (03:37→22:31)
[2018-01-06 05:59] LABS: Basophils % (Auto) 0.6 % (0.0-1.8); Eosinophils # (Auto) 0.1 K/mm3 (0.0-0.4); Eosinophils % (Auto) 1.6 % (0.0-4.3); Hematocrit 33.7 % (35.5-45.6); Hemoglobin 11.1 gm/dl (11.8-15.2); Lymphocytes # (Auto) 1.1 K/mm3 (1.2-5.4); Lymphocytes % (Auto) 17.9 % (13.4-35.0); Mean Corpuscular HGB Conc 33 % (32-34); Mean Corpuscular Hemoglobin 29 pg (28-32); Mean Corpuscular Volume 87 fl (84-94); Monocytes # (Auto) 0.7 K/mm3 (0.0-0.8); Monocytes % (Auto) 11.3 % (0.0-7.3); Platelet Count 177 K/mm3 (140-440); Red Blood Count 3.88 M/mm3 (3.65-5.03); Red Cell Distribution Width 15.4 % (13.2-15.2)
[2018-01-06] MEDS: HEPARIN SUB-Q SCH ×3 (06:07→22:30)
[2018-01-06 06:24] LABS: Alanine Aminotransferase 10 units/L (7-56); Albumin 2.7 g/dL (3.9-5); BUN/Creatinine Ratio 12; Blood Urea Nitrogen 15 mg/dL (9-20); Calcium 8.4 mg/dL (8.4-10.2); Hemolysis Index 3
[2018-01-06] MEDS: D5NS 1,000 ML IV SCH ×2 (06:36→22:31)
[2018-01-06] MEDS: HumaLOG SUB-Q SCH ×3 (08:13→19:15)
[2018-01-06] MEDS ORDERED: MAGNESIUM SULFATE 2GM/50ML 2 GM/50 ML BAG IV ONE (09:18)
--- NOTE | 2018-01-06 09:18 | Progress Note ---
Assessment and Plan 1. Acute kidney injury: Vasomotor / hemodynamic YESENIA. Renal function is better. Continue IV fluids. Monitor renal function. 2. Hypokalemia: Replete K and Mg. 3. UTI / Sepsis. 4. Dementia. Subjective Date of service: 01/06/18 Principal diagnosis: Sepsis from UTI Interval history: Patient was seen and examined at the bedside. Objective - Vital Signs Vital signs: Vital Signs - 12hr 01/06/18 01/06/18 02:37 07:33 Temperature 98.5 F 99.6 F Pulse Rate 69 Respiratory 20 20 Rate Blood Pressure 138/66 121/62 O2 Sat by Pulse 99 Oximetry - General Appearance General appearance: well-developed, appears stated age, other (no distress) EENT: ATNC Neck: supple Respiratory: Present: Clear to Ascultation Cardiology: regular, S1S2, no murmurs Gastrointestinal: normoactive bowel sounds, no tenderness Integumentary: no rash, warm and dry Neurologic: no focal deficit, no asterixis, confused, disoriented Musculoskeletal: other (trace pedal edema) - Lab 01/06/18 05:34 01/06/18 05:34 Most recent lab results Calcium 8.4 mg/dL (8.4-10.2) 01/06/18 05:34 Magnesium 1.60 mg/dL (1.7-2.3) L 01/06/18 05:34
[2018-01-06] MEDS ORDERED: MAGNESIUM SULFATE 2 GM in NACL 0.9% 50 ML IV ONE (10:00)
--- NOTE | 2018-01-06 11:24 | Progress Note ---
Assessment and Plan Assessment and plan: --Sepsis secondary to UTI; MRSA UTI Vancomycin , contact isolation follow cultures IV fluids and supportive care --Hypertension; moderate control Continue current antihypertensives and when necessary medications --Type 2 diabetes mellitus; Accu-Chek sliding scale coverage ADA diet and insulin as needed --Dementia; supportive care --History of depression; continue antidepression medications Consider psych consult if needed --Hypokalemia; replace per protocol and monitor levels --Acute kidney injury; secondary to ATN Renal function trending down, gentle hydration -- severe malnutrition; nutritional consult, supportive care And supplements --DVT prophylaxis; heparin --Full CODE STATUS Discharge planning per case management in medically stable Plan of care reviewed with the patient and his nurse History Interval history: Patient seen and examined medical records reviewed No new events reported by the nursing staff The patient is alert and awake No new complaints Vital signs reviewed Hospitalist Physical - Constitutional Vitals: Temp Pulse Resp BP Pulse Ox 99.6 F 69 20 121/62 99 01/06/18 07:33 01/06/18 07:33 01/06/18 07:33 01/06/18 07:33 01/06/18 07:33 General appearance: Present: no acute distress, well-nourished - EENT Eyes: Present: PERRL, EOM intact - Neck Neck: Present: supple, normal ROM - Respiratory Respiratory effort: normal Respiratory: bilateral: diminished, negative: rales, rhonchi, wheezing - Cardiovascular Rhythm: regular Heart Sounds: Present: S1 & S2 - Extremities Extremities: no ischemia, No edema - Abdominal General gastrointestinal: soft, non-tender, non-distended, normal bowel sounds - Integumentary Integumentary: Present: clear, warm - Psychiatric Psychiatric: appropriate mood/affect, cooperative - Neurologic Neurologic: CNII-XII intact, moves all extremities Results - Labs CBC & Chem 7: 01/06/18 05:34 01/06/18 05:34 Labs: Laboratory Last Values WBC 6.2 K/mm3 (4.5-11.0) 01/06/18 05:34 RBC 3.88 M/mm3 (3.65-5.03) 01/06/18 05:34 Hgb 11.1 gm/dl (11.8-15.2) L 01/06/18 05:34 Hct 33.7 % (35.5-45.6) L 01/06/18 05:34 MCV 87 fl (84-94) 01/06/18 05:34 MCH 29 pg (28-32) 01/06/18 05:34 MCHC 33 % (32-34) 01/06/18 05:34 RDW 15.4 % (13.2-15.2) H 01/06/18 05:34 Plt Count 177 K/mm3 (140-440) 01/06/18 05:34 Lymph % (Auto) 17.9 % (13.4-35.0) 01/06/18 05:34 [place] % (Auto) 11.3 % (0.0-7.3) H 01/06/18 05:34 Eos % (Auto) 1.6 % (0.0-4.3) 01/06/18 05:34 Baso % (Auto) 0.6 % (0.0-1.8) 01/06/18 05:34 Lymph # 1.1 K/mm3 (1.2-5.4) L 01/06/18 05:34 [place] # 0.7 K/mm3 (0.0-0.8) 01/06/18 05:34 Eos # 0.1 K/mm3 (0.0-0.4) 01/06/18 05:34 Baso # 0.0 K/mm3 (0.0-0.1) 01/06/18 05:34 Seg Neutrophils % 68.6 % (40.0-70.0) 01/06/18 05:34 Seg Neutrophils # 4.3 K/mm3 (1.8-7.7) 01/06/18 05:34 PT 15.3 Sec. (12.2-14.9) H 01/04/18 13:25 INR 1.15 (0.87-1.13) H 01/04/18 13:25 VBG pH 7.408 (7.320-7.420) 01/04/18 13:25 Sodium 144 mmol/L (137-145) 01/06/18 05:34 Potassium 3.1 mmol/L (3.6-5.0) L 01/06/18 05:34 Chloride 106.0 mmol/L (98-107) 01/06/18 05:34 Carbon Dioxide 24 mmol/L (22-30) 01/06/18 05:34 Anion Gap 17 mmol/L 01/06/18 05:34 BUN 15 mg/dL (9-20) 01/06/18 05:34 Creatinine 1.3 mg/dL (0.8-1.5) 01/06/18 05:34 Estimated GFR > 60 ml/min 01/06/18 05:34 BUN/Creatinine Ratio 12 % 01/06/18 05:34 Glucose 131 mg/dL (75-100) H 01/06/18 05:34 POC Glucose 132 (70-105) H 01/06/18 07:54 Lactic Acid 1.80 mmol/L (0.7-2.0) 01/04/18 16:34 Calcium 8.4 mg/dL (8.4-10.2) 01/06/18 05:34 Magnesium 1.60 mg/dL (1.7-2.3) L 01/06/18 05:34 Total Bilirubin 0.30 mg/dL (0.1-1.2) 01/06/18 05:34 AST 19 units/L (5-40) 01/06/18 05:34 ALT 10 units/L (7-56) 01/06/18 05:34 Alkaline Phosphatase 114 units/L (35-129) 01/06/18 05:34 Total Protein 6.1 g/dL (6.3-8.2) L 01/06/18 05:34 Albumin 2.7 g/dL (3.9-5) L 01/06/18 05:34 Albumin/Globulin Ratio 0.8 % 01/06/18 05:34 Urine Color Yellow (Yellow) 01/04/18 14:18 Urine Turbidity Clear (Clear) 01/04/18 14:18 Urine pH 6.0 (5.0-7.0) 01/04/18 14:18 Ur Specific [place] 1.014 (1.003-1.030) 01/04/18 14:18 Urine Protein 100 mg/dl mg/dL (Negative) 01/04/18 14:18 Urine Glucose (UA) Neg mg/dL (Negative) 01/04/18 14:18 Urine Ketones Neg mg/dL (Negative) 01/04/18 14:18 Urine Blood Mod (Negative) 01/04/18 14:18 Urine Nitrite Neg (Negative) 01/04/18 14:18 Urine Bilirubin Neg (Negative) 01/04/18 14:18 Urine Urobilinogen 2.0 mg/dL (<2.0) 01/04/18 14:18 Ur Leukocyte Esterase Lg (Negative) 01/04/18 14:18 Urine WBC (Auto) > 182.0 /HPF (0.0-6.0) H 01/04/18 14:18 Urine RBC (Auto) 112.0 /HPF (0.0-6.0) 01/04/18 14:18 Urine WBC Clumps 3+ /HPF 01/04/18 14:18
[2018-01-06] MEDS: PLAVIX PO SCH (11:33)
[2018-01-06] MEDS: LEXAPRO PO SCH (11:33)
[2018-01-06] MEDS: PROTONIX PO SCH (11:33)
[2018-01-06] MEDS: K-DUR PO SCH ×4 (11:34→22:29)
[2018-01-06] MEDS: RisperDAL PO SCH (11:35)
[2018-01-06] MEDS: ROCEPHIN/NS 1 GM/50 ML 1 GM/50 ML BAG IV SCH (11:36)
[2018-01-06] MEDS: NORVASC PO SCH (11:37)
[2018-01-06] MEDS ORDERED: VANCOMYCIN/NS 1 GM/250 ML 1 GM/250 ML BAG IV SCH ×2 (12:00)
[2018-01-06] MEDS ORDERED: VANCOMYCIN PHARMACY TO DOSE IV SCH (12:00)
[2018-01-06] MEDS ORDERED: VANCOMYCIN 1,500 MG in NACL 0.9% 500 ML 500 ML IV ONE (12:00)
[2018-01-06] MEDS: TYLENOL PO PRN (22:30)
[2018-01-06] MEDS: ARICEPT PO SCH (22:30)
[2018-01-07] MEDS: HumaLOG SUB-Q SCH ×5 (00:42→23:02)
[2018-01-07] MEDS: K-DUR PO SCH (00:43)
[2018-01-07] MEDS: HEPARIN SUB-Q SCH ×3 (06:05→22:37)
[2018-01-07 07:56] LABS: BUN/Creatinine Ratio 8; Blood Urea Nitrogen 9 mg/dL (9-20); Calcium 8.8 mg/dL (8.4-10.2); Hemolysis Index 10
[2018-01-07] MEDS ORDERED: MAGNESIUM SULFATE 2GM/50ML 2 GM/50 ML BAG IV ONE (09:46)
[2018-01-07] MEDS ORDERED: K-DUR PO NR (09:46)
--- NOTE | 2018-01-07 09:46 | Progress Note ---
Assessment and Plan 1. Acute kidney injury: Vasomotor / hemodynamic YESENIA. Renal function is better. Monitor renal function. 2. Hypokalemia: Replete K and Mg. 3. UTI / Sepsis. 4. Dementia. Subjective Date of service: 01/07/18 Principal diagnosis: Sepsis from UTI Interval history: Patient was seen and examined at the bedside. Objective - Vital Signs Vital signs: Vital Signs - 12hr 01/06/18 01/06/18 01/06/18 22:00 22:30 23:30 Temperature Pulse Rate Respiratory 20 20 Rate Blood Pressure Blood Pressure [Left] O2 Sat by Pulse 96 Oximetry 01/07/18 01/07/18 01/07/18 02:00 02:22 05:00 Temperature 98.3 F Pulse Rate 77 77 Respiratory 18 20 Rate Blood Pressure 128/66 Blood Pressure 128/66 [Left] O2 Sat by Pulse 98 98 98 Oximetry 01/07/18 01/07/18 05:33 07:27 Temperature Pulse Rate 72 91 H Respiratory Rate Blood Pressure Blood Pressure [Left] O2 Sat by Pulse 98 Oximetry - General Appearance General appearance: well-developed, appears stated age, other (no distress) EENT: ATNC Neck: supple Respiratory: Present: Clear to Ascultation Cardiology: regular, S1S2, no murmurs Gastrointestinal: normoactive bowel sounds, no tenderness Neurologic: no focal deficit, no asterixis, confused, disoriented Musculoskeletal: other (no edema) Psychiatric: cooperative - Lab 01/06/18 05:34 01/07/18 07:29 Most recent lab results Calcium 8.8 mg/dL (8.4-10.2) 01/07/18 07:29 Magnesium 1.60 mg/dL (1.7-2.3) L 01/07/18 07:29
[2018-01-07] MEDS ORDERED: MAGNESIUM SULFATE 2 GM in NACL 0.9% 50 ML IV ONE (10:30)
[2018-01-07] MEDS: NORVASC PO SCH (10:33)
[2018-01-07] MEDS: RisperDAL PO SCH (10:39)
[2018-01-07] MEDS: PLAVIX PO SCH (10:39)
[2018-01-07] MEDS: D5NS 1,000 ML IV SCH (10:40)
[2018-01-07] MEDS: PROTONIX PO SCH (10:40)
[2018-01-07] MEDS: LEXAPRO PO SCH (10:40)
[2018-01-07] MEDS: SODIUM CHLORIDE FLUSH SYRINGE 10 ML IV SCH ×2 (10:41→22:38)
[2018-01-07] MEDS ORDERED: VANCOMYCIN/NS 1 GM/250 ML 1 GM/250 ML BAG IV SCH (12:00)
[2018-01-07] MEDS: VANCOMYCIN 1,250 MG in NACL 0.9% 250ML 250 ML IV SCH (13:33)
--- NOTE | 2018-01-07 14:22 | Consultation ---
History of Present Illness - Reason for Consult Consult date: 01/07/18 MRSA UTI Requesting physician: LUPE BOO - History of Present Illness 87 y/o male with history of hypertension, diabetes, hyperlipidemia, dementia and depression; admitted on 01/04/2018 due to fever brought from assisted living facility. Patient is a poor historian unable to provide a history due to underlying dementia. In the ED, initial temperature 100.8, heart rate 107, respirations 16, O2 sat 118/87. Initial white count 11.5. Hg11.3. Platelets 149. Creatinine 0.8. Urinalysis large leukocyte esterase, white blood cells 182. 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) Social history: no significant social history Family history: other (unable to obtain) Medications and Allergies Allergies Allergy/AdvReac Type Severity Reaction Status Date / Time No Known Allergies Allergy Verified 01/04/18 13:12 Home Medications Medication Instructions Recorded Confirmed Last Taken Type Atorvastatin Calcium [Lipitor] 20 mg PO DAILY 02/19/14 01/04/18 02/24/14 09:00 History Clopidogrel Bisulfate [Plavix] 75 mg PO DAILY 02/19/14 01/04/18 02/24/14 09:00 History Donepezil [Aricept] 10 mg PO HS 02/19/14 01/04/18 02/24/14 History Escitalopram Oxalate [Lexapro] 5 mg PO DAILY 02/19/14 01/04/18 02/24/14 09:00 History Omeprazole [PriLOSEC] 40 mg PO DAILY 02/19/14 01/04/18 02/24/14 07:00 History Hydrochlorothiazide 12.5 mg PO QDAY 10/24/17 01/04/18 Unknown History risperiDONE [Risperdal] 0.5 mg PO DAILY 10/24/17 01/04/18 Unknown History Glimepiride [Amaryl] 2 mg PO DAILY 01/04/18 01/04/18 Unknown History Valsartan [Diovan] 160 mg PO DAILY 01/04/18 01/04/18 Unknown History amLODIPine [Norvasc] 10 mg PO DAILY 01/04/18 01/04/18 Unknown History Active Meds: Active Medications Acetaminophen (Tylenol) 650 mg PO Q4H PRN PRN Reason: Pain MILD(1-3)/Fever >100.5/TSANG Last Admin: 01/06/18 22:30 Dose: 650 mg Amlodipine Besylate (Norvasc) 10 mg PO DAILY [facility] Last Admin: 01/07/18 10:33 Dose: Not Given Atorvastatin Calcium (Lipitor) 20 mg PO DAILY [facility] Last Admin: 01/07/18 10:40 Dose: 20 mg Clopidogrel Bisulfate (Plavix) 75 mg PO DAILY [facility] Last Admin: 01/07/18 10:39 Dose: 75 mg Dextrose (D50w (25gm) Syringe) 50 ml IV PRN PRN PRN Reason: Hypoglycemia Donepezil HCl (Aricept) 10 mg PO HS [facility] Last Admin: 01/06/18 22:30 Dose: 10 mg Escitalopram Oxalate (Lexapro) 5 mg PO DAILY [facility] Last Admin: 01/07/18 10:40 Dose: 5 mg Heparin Sodium (Porcine) (Heparin) 5,000 unit SUB-Q Q8HR [facility] Last Admin: 01/07/18 13:34 Dose: 5,000 unit Dextrose/Sodium Chloride (D5ns) 1,000 mls @ 75 mls/hr IV DIRECT [facility] Last Admin: 01/07/18 10:40 Dose: 75 mls/hr Vancomycin HCl 1,250 mg/ (Sodium Chloride) 262.5 mls @ 166.667 mls/hr IV Q24H [facility] Last Admin: 01/07/18 13:33 Dose: 166.667 mls/hr Insulin Human Lispro (Humalog) 0 unit SUB-Q ACHS [facility]; Protocol Last Admin: 01/07/18 12:10 Dose: 2 unit Ondansetron HCl (Zofran) 4 mg IV Q8H PRN PRN Reason: Nausea And Vomiting Pantoprazole Sodium (Protonix) 40 mg PO DAILY [facility] Last Admin: 01/07/18 10:40 Dose: 40 mg Risperidone (Risperdal) 0.5 mg PO DAILY [facility] Last Admin: 01/07/18 10:39 Dose: 0.5 mg Sodium Chloride (Sodium Chloride Flush Syringe 10 Ml) 10 ml IV BID [facility] Last Admin: 01/07/18 10:41 Dose: 10 ml Sodium Chloride (Sodium Chloride Flush Syringe 10 Ml) 10 ml IV PRN PRN PRN Reason: LINE FLUSH Vancomycin HCl (Vancomycin Pharmacy To Dose) 1 each IV PKCONSULT JEREL Review of Systems ROS unobtainable: due to mental status Physical Examination - Physical Exam Narrative exam: General appearance: Alert in NAD, conversant Eyes: anicteric sclerae, moist conjunctivae; no lid-lag; PERRLA HENT: Atraumatic; oropharynx clear Neck: Trachea midline; supple, no thyromegaly or lymphadenopathy Lungs: CTA, with normal respiratory effort and no intercostal retractions CV: RRR, Abdomen: Soft, non-tender; no masses or hepatosplenomegaly Extremities: No peripheral edema or extremity lymphadenopathy Skin: Normal temperature, turgor and texture; no rash, ulcers or subcutaneous nodules Psych: Appropriate affect, alert and oriented to person, place and time. Neuro: alert and oriented x 3. Moving all extermities Lines: No CVL / PICC - Constitutional Vitals: Vital Signs Temp Pulse Resp BP Pulse Ox 99 F 85 20 123/64 98 01/07/18 07:27 01/07/18 07:27 01/07/18 07:27 01/07/18 07:27 01/07/18 09:58 Temperature -Last 24 Hours Temperature 99 F Temperature 98.3 F Temperature 100.2 F Temperature 99.5 F Results - Labs CBC & Chem 7: 01/06/18 05:34 01/07/18 07:29 Labs: Abnormal lab results 01/06/18 01/06/18 01/07/18 Range/Units 17:15 21:16 07:29 Carbon Dioxide 21 L (22-30) mmol/L Glucose 143 H (75-100) mg/dL POC Glucose 128 H 177 H (70-105) Magnesium 1.60 L (1.7-2.3) mg/dL 01/07/18 01/07/18 Range/Units 07:35 12:00 Carbon Dioxide (22-30) mmol/L Glucose (75-100) mg/dL POC Glucose 106 H 184 H (70-105) Magnesium (1.7-2.3) mg/dL Assessment and Plan Assessment: 1) Sepsis: Present on admission, manifested by fever, tachycardia, leukocytosis.. Etiology most likely MRSA UTI. 2) UTI: due to MRSA. Renal US neg. Blood cx negative. 3) Dementia Plan: -Continue vancomycin -Upon discharge was due to Bactrim DS one tablet by mouth every 12 hours total of 10 days -Monitor blood culture -Contact isolation Thank you for your consultation, will follow up with you. Hellen Schulz MD Infectious Diseases Specialist [facility] M [phone] O [phone]
--- NOTE | 2018-01-07 15:23 | Progress Note ---
Assessment and Plan Assessment and plan: --Hypomagnesemia; replace per protocol and monitor levels --Sepsis secondary to UTI; MRSA UTI Vancomycin , contact isolation follow cultures IV fluids and supportive care, ID evaluation noted --Hypertension; moderate control Continue current antihypertensives and when necessary medications --Type 2 diabetes mellitus; Accu-Chek sliding scale coverage ADA diet and insulin as needed --Dementia; supportive care --History of depression; continue antidepression medications Consider psych consult if needed --Hypokalemia; replace per protocol and monitor levels --Acute kidney injury; secondary to ATN Renal function trending down, gentle hydration -- severe malnutrition; nutritional consult, supportive care And supplements --DVT prophylaxis; heparin --Full CODE STATUS Discharge planning per case management in medically stable Plan of care reviewed with the patient and his nurse History Interval history: Patient seen and examined medical records reviewed Patient feels better no new complaints MRSA UTI, contact isolation, on vancomycin Vital signs reviewed stable Hospitalist Physical - Constitutional Vitals: Temp Pulse Resp BP Pulse Ox 99.4 F 75 20 127/74 89 01/07/18 13:54 01/07/18 13:54 01/07/18 13:54 01/07/18 13:54 01/07/18 13:54 General appearance: Present: no acute distress, well-nourished - EENT Eyes: Present: PERRL, EOM intact - Neck Neck: Present: supple, normal ROM - Respiratory Respiratory effort: normal Respiratory: bilateral: diminished, negative: rales, rhonchi, wheezing - Cardiovascular Rhythm: regular Heart Sounds: Present: S1 & S2 - Extremities Extremities: no ischemia, No edema - Abdominal General gastrointestinal: soft, non-tender, non-distended, normal bowel sounds - Integumentary Integumentary: Present: clear, warm - Psychiatric Psychiatric: appropriate mood/affect, cooperative - Neurologic Neurologic: CNII-XII intact, moves all extremities Results - Labs CBC & Chem 7: 01/06/18 05:34 01/07/18 07:29 Labs: Laboratory Last Values WBC 6.2 K/mm3 (4.5-11.0) 01/06/18 05:34 RBC 3.88 M/mm3 (3.65-5.03) 01/06/18 05:34 Hgb 11.1 gm/dl (11.8-15.2) L 01/06/18 05:34 Hct 33.7 % (35.5-45.6) L 01/06/18 05:34 MCV 87 fl (84-94) 01/06/18 05:34 MCH 29 pg (28-32) 01/06/18 05:34 MCHC 33 % (32-34) 01/06/18 05:34 RDW 15.4 % (13.2-15.2) H 01/06/18 05:34 Plt Count 177 K/mm3 (140-440) 01/06/18 05:34 Lymph % (Auto) 17.9 % (13.4-35.0) 01/06/18 05:34 [place] % (Auto) 11.3 % (0.0-7.3) H 01/06/18 05:34 Eos % (Auto) 1.6 % (0.0-4.3) 01/06/18 05:34 Baso % (Auto) 0.6 % (0.0-1.8) 01/06/18 05:34 Lymph # 1.1 K/mm3 (1.2-5.4) L 01/06/18 05:34 [place] # 0.7 K/mm3 (0.0-0.8) 01/06/18 05:34 Eos # 0.1 K/mm3 (0.0-0.4) 01/06/18 05:34 Baso # 0.0 K/mm3 (0.0-0.1) 01/06/18 05:34 Seg Neutrophils % 68.6 % (40.0-70.0) 01/06/18 05:34 Seg Neutrophils # 4.3 K/mm3 (1.8-7.7) 01/06/18 05:34 PT 15.3 Sec. (12.2-14.9) H 01/04/18 13:25 INR 1.15 (0.87-1.13) H 01/04/18 13:25 VBG pH 7.408 (7.320-7.420) 01/04/18 13:25 Sodium 141 mmol/L (137-145) 01/07/18 07:29 Potassium 3.6 mmol/L (3.6-5.0) 01/07/18 07:29 Chloride 104.9 mmol/L (98-107) 01/07/18 07:29 Carbon Dioxide 21 mmol/L (22-30) L 01/07/18 07:29 Anion Gap 19 mmol/L 01/07/18 07:29 BUN 9 mg/dL (9-20) 01/07/18 07:29 Creatinine 1.1 mg/dL (0.8-1.5) 01/07/18 07:29 Estimated GFR > 60 ml/min 01/07/18 07:29 BUN/Creatinine Ratio 8 % 01/07/18 07:29 Glucose 143 mg/dL (75-100) H 01/07/18 07:29 POC Glucose 184 (70-105) H 01/07/18 12:00 Lactic Acid 1.80 mmol/L (0.7-2.0) 01/04/18 16:34 Calcium 8.8 mg/dL (8.4-10.2) 01/07/18 07:29 Magnesium 1.60 mg/dL (1.7-2.3) L 01/07/18 07:29 Total Bilirubin 0.30 mg/dL (0.1-1.2) 01/06/18 05:34 AST 19 units/L (5-40) 01/06/18 05:34 ALT 10 units/L (7-56) 01/06/18 05:34 Alkaline Phosphatase 114 units/L (35-129) 01/06/18 05:34 Total Protein 6.1 g/dL (6.3-8.2) L 01/06/18 05:34 Albumin 2.7 g/dL (3.9-5) L 01/06/18 05:34 Albumin/Globulin Ratio 0.8 % 01/06/18 05:34 Urine Color Yellow (Yellow) 01/04/18 14:18 Urine Turbidity Clear (Clear) 01/04/18 14:18 Urine pH 6.0 (5.0-7.0) 01/04/18 14:18 Ur Specific [place] 1.014 (1.003-1.030) 01/04/18 14:18 Urine Protein 100 mg/dl mg/dL (Negative) 01/04/18 14:18 Urine Glucose (UA) Neg mg/dL (Negative) 01/04/18 14:18 Urine Ketones Neg mg/dL (Negative) 01/04/18 14:18 Urine Blood Mod (Negative) 01/04/18 14:18 Urine Nitrite Neg (Negative) 01/04/18 14:18 Urine Bilirubin Neg (Negative) 01/04/18 14:18 Urine Urobilinogen 2.0 mg/dL (<2.0) 01/04/18 14:18 Ur Leukocyte Esterase Lg (Negative) 01/04/18 14:18 Urine WBC (Auto) > 182.0 /HPF (0.0-6.0) H 01/04/18 14:18 Urine RBC (Auto) 112.0 /HPF (0.0-6.0) 01/04/18 14:18 Urine WBC Clumps 3+ /HPF 01/04/18 14:18
[2018-01-07] MEDS ORDERED: LASIX IV ONE (15:32)
[2018-01-07] MEDS: ARICEPT PO SCH (22:36)
[2018-01-07] MEDS: TYLENOL PO PRN (22:36)
[2018-01-08] MEDS: HEPARIN SUB-Q SCH ×3 (06:18→22:02)
--- NOTE | 2018-01-08 07:54 | Progress Note ---
Assessment and Plan 1. Acute kidney injury: Vasomotor / hemodynamic YESENIA. Renal function is better. Monitor renal function. 2. Monitor lytes. 3. UTI / Sepsis. 4. Dementia. Subjective Date of service: 01/08/18 Principal diagnosis: Sepsis from UTI Interval history: Patient was seen and examined at the bedside. Objective - Vital Signs Vital signs: Vital Signs - 12hr 01/07/18 01/07/18 01/07/18 22:35 22:36 23:36 Temperature Pulse Rate Respiratory 20 20 20 Rate Respiratory 20 Rate [ Generalized] Blood Pressure O2 Sat by Pulse Oximetry 01/08/18 01/08/18 01:38 07:21 Temperature 97.3 F L 99.2 F Pulse Rate 69 76 Respiratory 18 22 Rate Respiratory Rate [ Generalized] Blood Pressure 143/63 151/74 O2 Sat by Pulse 89 90 Oximetry - General Appearance General appearance: well-developed, appears stated age, other (no distress) EENT: ATNC Neck: supple Respiratory: Present: Clear to Ascultation Cardiology: S1S2, no murmurs Gastrointestinal: normoactive bowel sounds, no tenderness Integumentary: no rash, warm and dry Neurologic: no focal deficit, no asterixis, confused, disoriented Musculoskeletal: other (no edema) - Lab 01/06/18 05:34 01/08/18 06:30 Most recent lab results Calcium 8.8 mg/dL (8.4-10.2) 01/07/18 07:29 Magnesium 1.60 mg/dL (1.7-2.3) L 01/07/18 07:29
[2018-01-08] MEDS: HumaLOG SUB-Q SCH ×3 (07:57→17:01)
[2018-01-08 08:50] LABS: BUN/Creatinine Ratio 7; Blood Urea Nitrogen 8 mg/dL (9-20); Calcium 8.9 mg/dL (8.4-10.2); Hemolysis Index 6
--- NOTE | 2018-01-08 08:57 | Progress Note ---
Assessment and Plan Assessment and plan: --Hypomagnesemia; corrected --Sepsis secondary to UTI; MRSA UTI Vancomycin , contact isolation follow cultures IV fluids and supportive care, ID evaluation noted --Hypertension; moderate control Continue current antihypertensives and when necessary medications --Type 2 diabetes mellitus; Accu-Chek sliding scale coverage ADA diet and insulin as needed --Dementia; supportive care --History of depression; continue antidepression medications Consider psych consult if needed --Hypokalemia; replace per protocol and monitor levels --Acute kidney injury; secondary to ATN Renal function trending down, gentle hydration -- severe malnutrition; nutritional consult, supportive care And supplements --DVT prophylaxis; heparin --Full CODE STATUS Discharge planning per case management in medically stable Plan of care reviewed with the patient and his nurse History Interval history: Patient seen and examined medical records reviewed Sleeping easily awakens, confused at times No new events reported by the nursing Comfortable vital signs stable Hospitalist Physical - Constitutional Vitals: Temp Pulse Resp BP Pulse Ox 99.2 F 76 22 151/74 90 01/08/18 07:21 01/08/18 07:21 01/08/18 07:21 01/08/18 07:21 01/08/18 07:21 General appearance: Present: no acute distress, well-nourished - EENT Eyes: Present: PERRL, EOM intact - Neck Neck: Present: supple, normal ROM - Respiratory Respiratory effort: normal Respiratory: negative: rales, rhonchi, wheezing - Cardiovascular Rhythm: regular Heart Sounds: Present: S1 & S2 - Extremities Extremities: no ischemia, No edema - Abdominal General gastrointestinal: soft, non-tender, non-distended, normal bowel sounds - Integumentary Integumentary: Present: clear, warm - Psychiatric Psychiatric: appropriate mood/affect, cooperative - Neurologic Neurologic: CNII-XII intact, moves all extremities Results - Labs CBC & Chem 7: 01/06/18 05:34 01/08/18 06:30 Labs: Laboratory Last Values WBC 6.2 K/mm3 (4.5-11.0) 01/06/18 05:34 RBC 3.88 M/mm3 (3.65-5.03) 01/06/18 05:34 Hgb 11.1 gm/dl (11.8-15.2) L 01/06/18 05:34 Hct 33.7 % (35.5-45.6) L 01/06/18 05:34 MCV 87 fl (84-94) 01/06/18 05:34 MCH 29 pg (28-32) 01/06/18 05:34 MCHC 33 % (32-34) 01/06/18 05:34 RDW 15.4 % (13.2-15.2) H 01/06/18 05:34 Plt Count 177 K/mm3 (140-440) 01/06/18 05:34 Lymph % (Auto) 17.9 % (13.4-35.0) 01/06/18 05:34 [place] % (Auto) 11.3 % (0.0-7.3) H 01/06/18 05:34 Eos % (Auto) 1.6 % (0.0-4.3) 01/06/18 05:34 Baso % (Auto) 0.6 % (0.0-1.8) 01/06/18 05:34 Lymph # 1.1 K/mm3 (1.2-5.4) L 01/06/18 05:34 [place] # 0.7 K/mm3 (0.0-0.8) 01/06/18 05:34 Eos # 0.1 K/mm3 (0.0-0.4) 01/06/18 05:34 Baso # 0.0 K/mm3 (0.0-0.1) 01/06/18 05:34 Seg Neutrophils % 68.6 % (40.0-70.0) 01/06/18 05:34 Seg Neutrophils # 4.3 K/mm3 (1.8-7.7) 01/06/18 05:34 PT 15.3 Sec. (12.2-14.9) H 01/04/18 13:25 INR 1.15 (0.87-1.13) H 01/04/18 13:25 VBG pH 7.408 (7.320-7.420) 01/04/18 13:25 Sodium 141 mmol/L (137-145) 01/08/18 06:30 Potassium 3.9 mmol/L (3.6-5.0) 01/08/18 06:30 Chloride 104.2 mmol/L (98-107) 01/08/18 06:30 Carbon Dioxide 22 mmol/L (22-30) 01/08/18 06:30 Anion Gap 19 mmol/L 01/08/18 06:30 BUN 8 mg/dL (9-20) L 01/08/18 06:30 Creatinine 1.1 mg/dL (0.8-1.5) 01/08/18 06:30 Estimated GFR > 60 ml/min 01/08/18 06:30 BUN/Creatinine Ratio 7 % 01/08/18 06:30 Glucose 115 mg/dL (75-100) H 01/08/18 06:30 POC Glucose 110 (70-105) H 01/08/18 07:28 Lactic Acid 1.80 mmol/L (0.7-2.0) 01/04/18 16:34 Calcium 8.9 mg/dL (8.4-10.2) 01/08/18 06:30 Magnesium 1.80 mg/dL (1.7-2.3) 01/08/18 06:30 Total Bilirubin 0.30 mg/dL (0.1-1.2) 01/06/18 05:34 AST 19 units/L (5-40) 01/06/18 05:34 ALT 10 units/L (7-56) 01/06/18 05:34 Alkaline Phosphatase 114 units/L (35-129) 01/06/18 05:34 Total Protein 6.1 g/dL (6.3-8.2) L 01/06/18 05:34 Albumin 2.7 g/dL (3.9-5) L 01/06/18 05:34 Albumin/Globulin Ratio 0.8 % 01/06/18 05:34 Urine Color Yellow (Yellow) 01/04/18 14:18 Urine Turbidity Clear (Clear) 01/04/18 14:18 Urine pH 6.0 (5.0-7.0) 01/04/18 14:18 Ur Specific [place] 1.014 (1.003-1.030) 01/04/18 14:18 Urine Protein 100 mg/dl mg/dL (Negative) 01/04/18 14:18 Urine Glucose (UA) Neg mg/dL (Negative) 01/04/18 14:18 Urine Ketones Neg mg/dL (Negative) 01/04/18 14:18 Urine Blood Mod (Negative) 01/04/18 14:18 Urine Nitrite Neg (Negative) 01/04/18 14:18 Urine Bilirubin Neg (Negative) 01/04/18 14:18 Urine Urobilinogen 2.0 mg/dL (<2.0) 01/04/18 14:18 Ur Leukocyte Esterase Lg (Negative) 01/04/18 14:18 Urine WBC (Auto) > 182.0 /HPF (0.0-6.0) H 01/04/18 14:18 Urine RBC (Auto) 112.0 /HPF (0.0-6.0) 01/04/18 14:18 Urine WBC Clumps 3+ /HPF 01/04/18 14:18
[2018-01-08] MEDS: PLAVIX PO SCH (09:28)
[2018-01-08] MEDS: SODIUM CHLORIDE FLUSH SYRINGE 10 ML IV SCH ×2 (09:28→22:01)
[2018-01-08] MEDS: LEXAPRO PO SCH (09:29)
[2018-01-08] MEDS: RisperDAL PO SCH (09:29)
[2018-01-08] MEDS: NORVASC PO SCH (09:29)
[2018-01-08] MEDS: PROTONIX PO SCH (09:30)
[2018-01-08] MEDS: VANCOMYCIN 1,250 MG in NACL 0.9% 250ML 250 ML IV SCH (12:15)
[2018-01-08] MEDS: TYLENOL PO PRN (12:15)
[2018-01-08] MEDS: ARICEPT PO SCH (22:01)
[2018-01-09] MEDS: HumaLOG SUB-Q SCH ×5 (00:59→22:55)
[2018-01-09 04:52] LABS: BUN/Creatinine Ratio 8; Blood Urea Nitrogen 9 mg/dL (9-20); Calcium 8.6 mg/dL (8.4-10.2); Hemolysis Index 4
[2018-01-09] MEDS: HEPARIN SUB-Q SCH ×3 (06:22→22:50)
--- NOTE | 2018-01-09 07:44 | Progress Note ---
Assessment and Plan 1. Acute kidney injury: Vasomotor / hemodynamic YESENIA. Renal function is better. Monitor renal function and lytes. 2. UTI / Sepsis. 3. Dementia. Subjective Date of service: 01/09/18 Principal diagnosis: Sepsis from UTI Interval history: Patient was seen and examined at the bedside. Objective - Vital Signs Vital signs: Vital Signs - 12hr 01/08/18 01/08/18 01/08/18 20:26 20:27 22:00 Temperature 99.6 F Pulse Rate 102 H Respiratory 20 Rate Respiratory 20 Rate [ Generalized] Blood Pressure 132/78 O2 Sat by Pulse 94 Oximetry 01/09/18 02:14 Temperature 99.4 F Pulse Rate Respiratory 18 Rate Respiratory Rate [ Generalized] Blood Pressure 136/75 O2 Sat by Pulse Oximetry - General Appearance General appearance: well-developed, appears stated age, other (no distress) EENT: ATNC Neck: supple Respiratory: Present: Clear to Ascultation Cardiology: regular, S1S2, no murmurs Gastrointestinal: normoactive bowel sounds, no tenderness Integumentary: no rash, warm and dry Neurologic: no focal deficit, no asterixis, confused, disoriented Musculoskeletal: other (no edema) - Lab 01/06/18 05:34 01/09/18 03:38 Most recent lab results Calcium 8.6 mg/dL (8.4-10.2) 01/09/18 03:38 Magnesium 1.80 mg/dL (1.7-2.3) 01/08/18 06:30
--- NOTE | 2018-01-09 09:36 | Progress Note ---
Assessment and Plan Assessment: 1) Sepsis: resolved. Etiology most likely MRSA UTI. 2) UTI: due to MRSA. Renal US neg. Blood cx negative. 3) Dementia Plan: -Stop vancomycin -Start Bactrim DS one tablet by mouth every 12 hours total of 10 days until 01/15 -Monitor blood culture -Contact isolation I am signing off Thank you for your consultation, will follow up with you. Hellen Schulz MD Infectious Diseases Specialist [facility] ([facility]) M [phone] O [phone] Subjective Date of service: 01/09/18 Principal diagnosis: Sepsis from UTI Interval history: Feels good, no fever. Alert, communicating, confused Microbiology: Blood cultures: 01/04 neg Urine cultures: 01/04 MRSA Current Antimicrobials: Vancomycin Objective - Exam Narrative Exam: General appearance: Alert in NAD, conversant Eyes: anicteric sclerae, moist conjunctivae; no lid-lag; PERRLA HENT: Atraumatic; oropharynx clear Neck: Trachea midline; supple, no thyromegaly or lymphadenopathy Lungs: CTA CV: RRR, Abdomen: Soft, non-tender; no masses or hepatosplenomegaly Extremities: No peripheral edema or extremity lymphadenopathy Skin: Normal temperature, turgor and texture; no rash, ulcers or subcutaneous nodules Psych: Appropriate affect, alert and oriented to person, place and time. Neuro: alert and oriented x 3. Moving all extermities Lines: No CVL / PICC - Constitutional Vitals: Vital Signs Temp Pulse Resp BP Pulse Ox 99.2 F 102 H 20 136/65 94 01/09/18 07:38 01/08/18 20:27 01/09/18 07:38 01/09/18 07:38 01/08/18 20:27 Temperature -Last 24 Hours Temperature 99.2 F Temperature 99.4 F Temperature 99.6 F Temperature 98.4 F - Labs CBC & Chem 7: 01/06/18 05:34 01/09/18 03:38 Labs: Abnormal lab results 01/08/18 01/08/18 01/09/18 Range/Units 11:33 16:34 00:08 Glucose (75-100) mg/dL POC Glucose 188 H 142 H 144 H (70-105) 01/09/18 01/09/18 Range/Units 03:38 07:45 Glucose 111 H (75-100) mg/dL POC Glucose 119 H (70-105)
[2018-01-09] MEDS: LEXAPRO PO SCH (10:21)
[2018-01-09] MEDS: PROTONIX PO SCH (10:22)
[2018-01-09] MEDS: BACTRIM DS PO SCH ×2 (10:22→22:49)
[2018-01-09] MEDS: PLAVIX PO SCH (10:22)
[2018-01-09] MEDS: NORVASC PO SCH (10:22)
[2018-01-09] MEDS: RisperDAL PO SCH (10:22)
[2018-01-09] MEDS: SODIUM CHLORIDE FLUSH SYRINGE 10 ML IV SCH ×2 (10:23→22:50)
[2018-01-09] MEDS ORDERED: K-DUR PO NR (11:54)
--- NOTE | 2018-01-09 16:41 | Progress Note ---
Assessment and Plan Assessment and plan: --Sepsis secondary to UTI; MRSA UTI contact isolation,ID recommend DC vancomycin and start Bactrim DS, total 10 days, stop date 01/15/2018 --Hypertension; well controlled Continue current antihypertensives and when necessary medications --Type 2 diabetes mellitus; Accu-Chek sliding scale coverage ADA diet and insulin as needed, check A1c --Dementia; supportive care --History of depression; continue antidepression medications No suicidal thoughts or ideation --Hypokalemia/ hypomagnesemia corrected --Acute kidney injury; secondary to ATN, resolved -- severe malnutrition; nutritional consult, supportive care Nutrition supplements --DVT prophylaxis; heparin --Full CODE STATUS DC planning. Case management , awaiting SNF placement Patient is medically stable for discharge today Plan of care reviewed with the patient and his nurse History Interval history: Patient seen and examined medical records reviewed Patient with MRSA UTI on vancomycin, contact isolation ID following The patient feels better no new complaints No new events reported by the nursing Vital signs reviewed stable Patient is comfortable responding to simple questions Hospitalist Physical - Constitutional Vitals: Temp Pulse Resp BP Pulse Ox 99.8 F H 77 20 124/68 95 01/09/18 16:13 01/09/18 16:13 01/09/18 16:13 01/09/18 16:13 01/09/18 16:13 General appearance: Present: no acute distress, well-nourished - EENT Eyes: Present: PERRL, EOM intact - Neck Neck: Present: supple, normal ROM - Respiratory Respiratory effort: normal Respiratory: bilateral: diminished, negative: rales, rhonchi, wheezing - Cardiovascular Rhythm: regular Heart Sounds: Present: S1 & S2 - Extremities Extremities: no ischemia, No edema - Abdominal General gastrointestinal: soft, non-tender, non-distended, normal bowel sounds - Integumentary Integumentary: Present: clear, warm - Psychiatric Psychiatric: appropriate mood/affect, cooperative - Neurologic Neurologic: CNII-XII intact, moves all extremities Results - Labs CBC & Chem 7: 01/06/18 05:34 01/09/18 03:38 Labs: Laboratory Last Values WBC 6.2 K/mm3 (4.5-11.0) 01/06/18 05:34 RBC 3.88 M/mm3 (3.65-5.03) 01/06/18 05:34 Hgb 11.1 gm/dl (11.8-15.2) L 01/06/18 05:34 Hct 33.7 % (35.5-45.6) L 01/06/18 05:34 MCV 87 fl (84-94) 01/06/18 05:34 MCH 29 pg (28-32) 01/06/18 05:34 MCHC 33 % (32-34) 01/06/18 05:34 RDW 15.4 % (13.2-15.2) H 01/06/18 05:34 Plt Count 177 K/mm3 (140-440) 01/06/18 05:34 Lymph % (Auto) 17.9 % (13.4-35.0) 01/06/18 05:34 [place] % (Auto) 11.3 % (0.0-7.3) H 01/06/18 05:34 Eos % (Auto) 1.6 % (0.0-4.3) 01/06/18 05:34 Baso % (Auto) 0.6 % (0.0-1.8) 01/06/18 05:34 Lymph # 1.1 K/mm3 (1.2-5.4) L 01/06/18 05:34 [place] # 0.7 K/mm3 (0.0-0.8) 01/06/18 05:34 Eos # 0.1 K/mm3 (0.0-0.4) 01/06/18 05:34 Baso # 0.0 K/mm3 (0.0-0.1) 01/06/18 05:34 Seg Neutrophils % 68.6 % (40.0-70.0) 01/06/18 05:34 Seg Neutrophils # 4.3 K/mm3 (1.8-7.7) 01/06/18 05:34 PT 15.3 Sec. (12.2-14.9) H 01/04/18 13:25 INR 1.15 (0.87-1.13) H 01/04/18 13:25 VBG pH 7.408 (7.320-7.420) 01/04/18 13:25 Sodium 139 mmol/L (137-145) 01/09/18 03:38 Potassium 3.7 mmol/L (3.6-5.0) 01/09/18 03:38 Chloride 103.7 mmol/L (98-107) 01/09/18 03:38 Carbon Dioxide 24 mmol/L (22-30) 01/09/18 03:38 Anion Gap 15 mmol/L 01/09/18 03:38 BUN 9 mg/dL (9-20) 01/09/18 03:38 Creatinine 1.1 mg/dL (0.8-1.5) 01/09/18 03:38 Estimated GFR > 60 ml/min 01/09/18 03:38 BUN/Creatinine Ratio 8 % 01/09/18 03:38 Glucose 111 mg/dL (75-100) H 01/09/18 03:38 POC Glucose 174 (70-105) H 01/09/18 11:19 Lactic Acid 1.80 mmol/L (0.7-2.0) 01/04/18 16:34 Calcium 8.6 mg/dL (8.4-10.2) 01/09/18 03:38 Magnesium 1.80 mg/dL (1.7-2.3) 01/08/18 06:30 Total Bilirubin 0.30 mg/dL (0.1-1.2) 01/06/18 05:34 AST 19 units/L (5-40) 01/06/18 05:34 ALT 10 units/L (7-56) 01/06/18 05:34 Alkaline Phosphatase 114 units/L (35-129) 01/06/18 05:34 Total Protein 6.1 g/dL (6.3-8.2) L 01/06/18 05:34 Albumin 2.7 g/dL (3.9-5) L 01/06/18 05:34 Albumin/Globulin Ratio 0.8 % 01/06/18 05:34 Urine Color Yellow (Yellow) 01/04/18 14:18 Urine Turbidity Clear (Clear) 01/04/18 14:18 Urine pH 6.0 (5.0-7.0) 01/04/18 14:18 Ur Specific [place] 1.014 (1.003-1.030) 01/04/18 14:18 Urine Protein 100 mg/dl mg/dL (Negative) 01/04/18 14:18 Urine Glucose (UA) Neg mg/dL (Negative) 01/04/18 14:18 Urine Ketones Neg mg/dL (Negative) 01/04/18 14:18 Urine Blood Mod (Negative) 01/04/18 14:18 Urine Nitrite Neg (Negative) 01/04/18 14:18 Urine Bilirubin Neg (Negative) 01/04/18 14:18 Urine Urobilinogen 2.0 mg/dL (<2.0) 01/04/18 14:18 Ur Leukocyte Esterase Lg (Negative) 01/04/18 14:18 Urine WBC (Auto) > 182.0 /HPF (0.0-6.0) H 01/04/18 14:18 Urine RBC (Auto) 112.0 /HPF (0.0-6.0) 01/04/18 14:18 Urine WBC Clumps 3+ /HPF 01/04/18 14:18
[2018-01-09] MEDS: ARICEPT PO SCH (22:50)
[2018-01-09] MEDS: TYLENOL PO PRN (22:50)
[2018-01-10 05:52] LABS: BUN/Creatinine Ratio 6; Blood Urea Nitrogen 8 mg/dL (9-20); Calcium 8.7 mg/dL (8.4-10.2); Hemolysis Index 10
[2018-01-10] MEDS: HEPARIN SUB-Q SCH (06:08)
[2018-01-10] MEDS: HumaLOG SUB-Q SCH ×2 (08:03→12:30)
--- NOTE | 2018-01-10 08:52 | Progress Note ---
Assessment and Plan 1. Acute kidney injury: Vasomotor / hemodynamic YESENIA. Renal function has improved. Mild CKD. 2. UTI / Sepsis. 3. Dementia. F/u with me in 1-2 weeks. Subjective Date of service: 01/10/18 Principal diagnosis: Sepsis from UTI Interval history: Patient was seen and examined at the bedside. Objective - Vital Signs Vital signs: Vital Signs - 12hr 01/09/18 01/09/18 01/09/18 22:00 22:50 23:50 Respiratory 20 20 20 Rate Respiratory 20 Rate [ Generalized] O2 Sat by Pulse 95 Oximetry - General Appearance General appearance: well-developed, well-nourished, appears stated age, other ( no distress) EENT: ATNC, PERRL Neck: supple Respiratory: Present: Clear to Ascultation Cardiology: S1S2, no murmurs Gastrointestinal: normoactive bowel sounds, no tenderness Integumentary: no rash, warm and dry Neurologic: no focal deficit, no asterixis, confused, disoriented Musculoskeletal: other (no edema) - Lab 01/06/18 05:34 01/10/18 04:22 Most recent lab results Calcium 8.7 mg/dL (8.4-10.2) 01/10/18 04:22 Magnesium 1.80 mg/dL (1.7-2.3) 01/08/18 06:30
[2018-01-10] MEDS: LEXAPRO PO SCH (09:55)
[2018-01-10] MEDS: PROTONIX PO SCH (09:55)
[2018-01-10] MEDS: PLAVIX PO SCH (09:56)
[2018-01-10] MEDS: NORVASC PO SCH (09:56)
[2018-01-10] MEDS: RisperDAL PO SCH (09:56)
[2018-01-10] MEDS: BACTRIM DS PO SCH (09:56)
--- NOTE | 2018-01-10 09:56 | Discharge Summary ---
Providers - Providers Date of Admission: 01/04/18 18:34 Date of discharge: 01/10/18 Attending physician: FATIMAH KENNEDY 01/04/18 22:22 Consult to Physician [CONS] Routine Comment: RAJINDER Consulting Provider: LORE MAN Physician Instructions: DR. MAN WAS NOTIFIED. Reason For Exam: lam 01/06/18 11:30 Consult to Physician [CONS] Routine Comment: left mess./ ramón Consulting Provider: DASIA MCKEON Physician Instructions: Reason For Exam: MRSA UTI 01/06/18 19:01 Physical Therapy Evaluation and Treat [CONS] Routine Comment: Please eval for short-term SNF placement Reason For Exam: Debility 01/06/18 19:03 Occupational Therapy Evaluate and Treat [CONS] Routine Comment: Please eval for short-term SNF placement Reason For Exam: Debility Primary care physician: FISH [employer]ER Hospitalization Reason for admission: mrsa uti Condition: Stable Hospital course: 87 y/o male with history of hypertension, diabetes, hyperlipidemia, dementia and depression; admitted on 01/04/2018 due to fever brought from assisted living facility. In the ED, initial temperature 100.8, heart rate 107, respirations 16, O2 sat 118/87. Initial white count 11.5. Hg11.3. Platelets 149. Creatinine 0.8. Urinalysis large leukocyte esterase, white blood cells 182. Patient was admitted with diagnosis of sepsis with UTI as well as acute kidney injury secondary to vasomotor nephropathy.. Urine cultures from 01/04 revealed MRSA. ID was consulted for MRSA UTI. Blood cultures and renal ultrasound were negative Patient was treated with vancomycin. The creatinine resolved to a normal range 1.3. Case management was consulted with regards to discharge planning and SNF placement was recommended. The patient will discharged to [facility]. Discharge time 35 minutes. Disposition: DC-01 TO HOME OR SELFCARE Time spent for discharge: 35 Core Measure Documentation - Palliative Care Palliative Care/ Comfort Measures: Not Applicable - Core Measures Any of the following diagnoses?: none Exam - Constitutional Vitals: Temp Pulse Resp BP Pulse Ox 99.2 F 107 H 18 148/77 96 01/10/18 07:51 01/10/18 07:51 01/10/18 07:51 01/10/18 07:51 01/10/18 07:51 General appearance: Present: no acute distress, well-nourished - EENT Eyes: Present: PERRL ENT: hearing intact, clear oral mucosa - Neck Neck: Present: supple, normal ROM - Respiratory Respiratory effort: normal Respiratory: bilateral: CTA - Cardiovascular Heart Sounds: Present: S1 & S2. Absent: rub, click - Extremities Extremities: pulses symmetrical, No edema Peripheral Pulses: within normal limits - Abdominal General gastrointestinal: Present: soft, non-tender, non-distended, normal bowel sounds Male genitourinary: Present: normal - Integumentary Integumentary: Present: clear, warm, dry - Musculoskeletal Musculoskeletal: gait normal, strength equal bilaterally - Psychiatric Psychiatric: appropriate mood/affect, intact judgment & insight - Neurologic Neurologic: CNII-XII intact, moves all extremities Plan Activity: advance as tolerated Weight Bearing Status: Weight Bear as Tolerated Diet: regular Follow up with: PRIMARY CARE, [Primary Care Provider] - 3-5 Days DASIA MCKEON MD [Staff Physician] - 7 Days LORE MAN MD [Staff Physician] - 7 Days Prescriptions: Sulfamethoxazole/Trimethoprim [Bactrim DS TAB] 1 each PO Q12HR #10 tablet
[2018-01-10] MEDS: SODIUM CHLORIDE FLUSH SYRINGE 10 ML IV SCH (09:57)
[2018-01-10 13:24] VITALS: BP 121/71
== END 2018-01-10 13:25 | DRG 871 ==
LOC: ED 12:48 → 4A 18:34 → OBSVTOIN 18:34 → INTOOBSV 18:34 → 2B-ACE 23:24
PROVIDERS: ADMIT Internal Medicine; ATTEND Hospitalist
DX: A41.9 Sepsis, unspecified organism (principal); N17.0 Acute kidney failure with tubular necrosis; E43 Unspecified severe protein-calorie malnutrition; N39.0 Urinary tract infection, site not specified; F03.90 Unspecified dementia, unspecified severity, without behavioral disturbance, psychotic disturbance, mood disturbance, and anxiety; E86.0 Dehydration; F32.9 Major depressive disorder, single episode, unspecified; Z95.1 Presence of aortocoronary bypass graft; E78.5 Hyperlipidemia, unspecified; E87.6 Hypokalemia; I12.9 Hypertensive chronic kidney disease with stage 1 through stage 4 chronic kidney disease, or unspecified chronic kidney disease; E11.22 Type 2 diabetes mellitus with diabetic chronic kidney disease; N18.2 Chronic kidney disease, stage 2 (mild); E83.42 Hypomagnesemia; Z68.25 Body mass index [BMI] 25.0-25.9, adult; B95.7 Other staphylococcus as the cause of diseases classified elsewhere
CPT/HCPCS: 36415; 71045; 76770; 80048; 80053; 81001; 82140; 82805; 82962; 83036; 83735; 85025; 85610; 87040; 87086; 87186; 93005; 93010; 94760; A9270-GY; G8978-GP; G8979-GP; G8980-GP; G8987-GO; G8988-GO; G8989-GO; J0696; J1644; J1815; J1940; J3370; J3475; J7040; J7042; J7050